=== PATIENT | male | born 1965 | race Caucasian/White ===

== ENCOUNTER 2019-02-14 10:22 | Inpatient (IN) | payer MEDICARE, OTHER ==
[~2019-02-14] VITALS: Ht 185.4 cm; Wt 113.5 kg
[~2019-02-14 10:22] MED LIST: AMOCLA875 PO; ASPI81CH PO; ASPI81EC PO; ATOR10 PO; Augmentin 875-1 EACH PO; Bactrim Ds Tab1 EACH PO; CEPH500; CEPH500 PO; CIPR500 PO; CLOP75 PO; CYCL10 PO; Cephalexin500 MG PO; DIPATR PO; FLUR100 PO; HYDACE5 PO; HYDCHL25; HYDCHL25 PO; HYDR1TAB94; HYDR1TAB94 PO; INS70/30I SUBQ; INSUASPI SC; INSULANPEN SC; LISI5 PO; LOVA20 PO; Lipitor80 MG PO; METF500 PO; NAPR500 PO; NAPR550 PO; Norco 5-325 Ta1 EACH PO; OXYACE5T PO; PARO20 PO; PROM25 PO; Pantoprazole So40 MG PO; RXCYCL10 PO; SIMV80 PO; SUCR1 PO; SULTRIDS PO; TRAVER2240
[2019-02-14 11:48] LABS: BASOPHILS ABSOLUTE AUTO 0.07 K/mm3 (0.00-0.23); BASOPHILS PERCENT AUTO 1 % (0-2); EOSINOPHILS ABSOLUTE AUTO 0.09 K/mm3 (0.00-0.68); EOSINOPHILS PERCENT AUTO 1 % (0-6); Hematocrit 50.3 % (37.0-53.0); Hemoglobin 16.4 g/dL (13.5-17.5); IMMATURE GRAN ABSOLUTE AUTO 0.04 K/mm3 (0.00-0.10); IMMATURE GRAN PERCENT AUTO 1 % (0-1); LYMPHOCYTES ABSOLUTE AUTO 1.27 K/mm3 (0.84-5.20); LYMPHOCYTES PERCENT AUTO 18 % (21-46); MONOCYTES ABSOLUTE AUTO 0.66 K/mm3 (0.16-1.47); MONOCYTES PERCENT AUTO 10 % (4-13); Mean Corpuscular HGB 28.2 pg (26.0-34.0); Mean Corpuscular HGB Conc 32.6 g/dL (31.5-36.5); Mean Corpuscular Volume 87 fL (80-100); Mean Platelet Volume 10.9 fL (9.1-12.4); NEUTROPHILS ABSOLUTE AUTO 4.78 K/mm3 (1.96-9.15); NEUTROPHILS PERCENT AUTO 69 % (41-73); Platelet Count 191 K/mm3 (150-400); RDW Coefficient Variation 13.3 % (11.7-14.2); RDW Standard Deviation 42.1 fL (35.1-46.3); Red Blood Cell Count 5.81 M/mm3 (4.30-5.90); White Blood Cell Count 6.91 K/mm3 (4.00-11.30)
[2019-02-14 12:07] LABS: Albumin, Blood 3.4 g/dL (3.4-5.0); Albumin/Globulin Ratio 0.8 (0.8-1.8); Bilirubin, Total 0.4 mg/dL (0.1-1.0); Bun/Creatinine Ratio 23.5 (12.0-20.0); Calcium, Blood 9.1 mg/dL (8.5-10.1); Creatinine, Blood 1.53 mg/dL (0.60-1.20); Potassium, Blood 4.8 mmol/L (3.5-5.5); Total Protein, Blood 7.4 g/dL (6.4-8.2)
[2019-02-14] MEDS ORDERED: PREG75 PO (13:09)
[2019-02-14] MEDS ORDERED: PRAM.125 PO (13:09)
[2019-02-14] MEDS ORDERED: ATOR20 PO (13:09)
[2019-02-14] MEDS ORDERED: PANT20 PO (13:10)
[2019-02-14] MEDS ORDERED: IBUP600 PO (13:11)
[2019-02-14 14:10] LABS: Source, Urine Voided
[2019-02-14 14:26] LABS: Bilirubin, Urine Neg (Neg); Blood, Urine Neg (Neg); Glucose Qualitative, Urine 4+ (Neg); Ketones, Urine Neg (Neg); Leukocyte Esterase, Urine Neg (Neg); Nitrite, Urine Neg (Neg); Protein, Urine 2+ (Neg); Urobilinogen, Urine NORM (Normal)
[2019-02-14 14:39] LABS: Appearance, Urine Clear (Clear); Color, Urine Yellow (P-Yellow)
[2019-02-14 14:43] LABS: Bacteria Few /hpf; Red Blood Cells, Urine 0-2 /hpf (0-2); Squamous Epithelial Cells Rare /hpf (Few)
--- NOTE | 2019-02-14 16:58 | NUR ---
ER ADMIT- PT ARRIVED TO ROOM 340 VIA GURNEY FROM ED. PT INDEP TO BED. PT IMMEDIATELY REQUESTED TO GO OUTSIDE AND SPOKE. ASKED PT TO WAIT TO COMPLETE VS AND ADMIT, PT REFUSED AND AMBULATED OUTSIDE WITH CANE. CONSULT CALLED TO DR MAO.
--- NOTE | 2019-02-14 18:23 | NUR ---
NEW ADMIT- PT A/OX4, INDEP OUTSIDE WITH CANE. PT MEDICATED X1 WITH RIGHT FOOT PAIN. PHOTO TAKEN OF ULCER TO BOTTOM OF RIGHT FOOT, DR MAO IN TO SEE PT. I&D TOMORROW WITH POSSIBLE AMPUTATION, NPO AT 0100. NO OTHER ACUTE CHANGES SINCE ARRIVAL TO FLOOR.
[2019-02-15 06:01] LABS: Anion Gap 5 mmol/L (6-16); Blood Urea Nitrogen 26 mg/dL (8-24); Bun/Creatinine Ratio 19.8 (12.0-20.0); CO2, Blood 30 mmol/L (21-32); Calcium, Blood 8.2 mg/dL (8.5-10.1); Chloride, Blood 96 mmol/L (98-108); Creatinine, Blood 1.31 mg/dL (0.60-1.20); Glomerular Filtration Rate >60 (60-); Glucose, Blood 107 mg/dL (70-99); Potassium, Blood 3.8 mmol/L (3.5-5.5); Sodium, Blood 131 mmol/L (136-145)
--- NOTE | 2019-02-15 07:55 | NUR ---
PT TO OR.
--- NOTE | 2019-02-15 08:40 | NUR ---
02/15/19 0840 Son Echeverria LIDOCAINE 1% 7.5CC MIXED WITH BUPICAINE .5% 7.5CC. GIVEN INTO FOOT. PATIENT ON SCEDULED ANTIBIOTICS.
--- NOTE | 2019-02-15 09:36 | NUR ---
PT C/O SHARP LT CHEST PAIN INCREASES IN SEVERITY W/DEEP BREATH AND TENDER TO TOUCH, ALSO C/O LT ARM NUMBNESS. ANESTHESIOLOGIST NOTIFIED, EKG DONE.
--- NOTE | 2019-02-15 10:27 | NUR ---
PT BACK FROM I&D. PT AWAKE, REQUESTING FOOD TO EAT. PT REPORTS 4/10 THROBBING PAIN TO RIGHT FOOT. DRESSING C/D/I. RIGHT FOOT ELEVATED ON PILLOWS.
--- NOTE | 2019-02-15 16:49 | NUR ---
PT DAUGHTER PAUL CALLED VERY UPSET DUE TO NOT BEING NOTIFIED THAT PT WAS AT THE HOSPITAL. PT IS A/OX4, INDEP PT THAT WAS REFFERED TO HOSPITAL FROM PODIATRY FOR A I&D. I INFORMED PT DAUGHTER THAT WE DO NOT CALL FAMILY MEMBERS WHEN THEY ARE IN THE HOSPITAL UNLESS THERE IS AN EMERGENCY SITUATION WITH PT AND ESPECIALLY WHEN THE PT IS ALERT AND ORIENTED. SHE WAS UPSET T/O THE PHONE CALL REQUESTING FOR THE DR'S TO CALL HER I TOLD HER I WOULD TAKE HER PHONE NUMBER AND NOTIFY THE DR'S THAT SHE WOULD LIKE A CALL BACK. DAUGHTER APOLOGIZED AT THE END OF THE CALL FOR BEING HOSTILE ON THE PHONE CALL, I TOOK DAUGHERS NUMBER AND NOTIFIED PT THAT SHE WAS UPSET AND ASKED HIM TO CALL HER AND LET HER KNOW WHAT WAS ALL GOING ON. APROX AN HOUR LATER I RECEIVED A PHONE CALL FROM DR MAO STATING THAT THIS PT'S DAUGHTER CALLED HIM ON HIS PERSONAL CELL PHONE IN WHICH HE BELIEVES SHE RECEIVED FROM HIS OFFICE, DR MAO REPORTED THAT HE COULD NOT GIVE HER ANY MEDICAL INFORMATION DUE TO NOT HAVING CONSENT DIRECTLY IN FRONT OF HIM FROM THE PT. HE REPORTS THE DAUGHTER THREATED TO BRADY HIM FOR MALPRACTICE. DOCTOR DAYLIN STATES HE WILL TAKE PT OFF HIS SERVICES IF THIS CONTINUES AND TO NOTIFY SUPER[employer]OR [employer] WELL HOSPITALIST, HE IS ASKING FOR PT TO BE REFERRED TO [facility] OR [facility]. HE DID SAY THAT HE PLANS ON SEEING THE PT ON SUNDAY UNLESS THIS CONTINUES. NOTIFIED TEXTILE KNITTER WHO ALSO NOTIFIED SUPERVISOR [employer]. DR TO NOTIFIED AND REPORTS THERE IS NO MEDICAL NECESSITY TO TRANSFER PT TO ANOTHER FACILITY AT THIS TIME. DR TO WAS NOTIFIED THAT SHE WOULD LIKE A PHONE CALL WHEN AVAILABLE.
--- NOTE | 2019-02-15 18:10 | NUR ---
PT NOTIFIED ABOUT DAUGHTER CALLING DR MAO, PT WAS VERY APOLOGETIC FOR DAUGHTERS BEHAVIOR AND STATES THAT HE WILL TALK TO HER AND THAT HE EXPLAINED TO HER WHY HE WAS HERE.
--- NOTE | 2019-02-15 18:10 | NUR ---
SHIFT SUMMARY- PT A/OX4, INDEP IN ROOM. USES W/C TO GO OUTSIDE AND SMOKE. PT MEDICATED X1 WITH OXYCODONE FOR RIGHT FOOT PAIN. I&D COMPLETED THIS AM BY DR MAO, DRESSING REMAINS C/D/I, DR MAO TO COME SEE PT ON SUNDAY. PT ENCOURAGED TO ELEVATE RLE ON PILLOWS. PT OUTSIDE MULTIPLE TIMES EVEN THOUGH HE IS TO BE ON IVF. NO OTHER ACUTE CHANGES THIS SHIFT.
--- NOTE | 2019-02-15 18:48 | NUR ---
PT WENT FOR AN I&D THIS MORNING. PT REMAINED GROGGY FOR SEVERAL HOURS UPON RETURN TO THE MEDICAL FLOOR. PT SLEPT ON AND OFF FOR MOST OF THE DAY. HE ATE ALL OF HIS MEALS AND TWO SNACKS IN BETWEEN. PT CAN BE ANXIOUS AND IRRITABLE UPON BEING AWOKEN. PT ACCEPTED PRN PAIN MEDICATION ONCE AFTER RETURN FROM SURGERY. PT IS INDEPENDANT AND ORIENTATED.
--- NOTE | 2019-02-15 22:38 | NUR ---
1950; ROUNDED ON PATIENT; PATIENT ASKED TO BELEFT ALONE; ADVISED HIM THAT WE WOULD LEAVE HIM BE UNTIL BETWEEN 9-10 PM; 2199: PATIENT APPARENTLY DEMANDING TO GO OUT SIDE AND THREATENTING TO CUT HIS LINE IF NOT DISCONNECTED FROM HIS IVF. WENT TO SEE THE PATIENT ASKED HIM TO BE COURTEOUS TO THE STAFF. TOLD HIM THAT WE WANT HIM TO BE COMFORTABLE BUT THAT HE NEEDS TO MINDFUL OF HIS MANNER WITH STAF; PATIENT BECAME ENLAMEDD. DISCONNECTED HIS IV AND HE WENT OUTSIDE TO SMOKE.. ADVISEDD CONTROL SYSTEM COMPUTER SCIENTIST NOT TO ENTER THE PATIENTS ROOM WITH OUT ME AND ADVISED CHARGE OF PT BEHAVIOR.
[2019-02-16 05:30] LABS: BASOPHILS ABSOLUTE AUTO 0.07 K/mm3 (0.00-0.23); BASOPHILS PERCENT AUTO 1 % (0-2); EOSINOPHILS ABSOLUTE AUTO 0.14 K/mm3 (0.00-0.68); EOSINOPHILS PERCENT AUTO 2 % (0-6); Hematocrit 47.9 % (37.0-53.0); Hemoglobin 15.7 g/dL (13.5-17.5); IMMATURE GRAN ABSOLUTE AUTO 0.04 K/mm3 (0.00-0.10); IMMATURE GRAN PERCENT AUTO 1 % (0-1); LYMPHOCYTES ABSOLUTE AUTO 2.12 K/mm3 (0.84-5.20); LYMPHOCYTES PERCENT AUTO 28 % (21-46); MONOCYTES ABSOLUTE AUTO 0.73 K/mm3 (0.16-1.47); MONOCYTES PERCENT AUTO 10 % (4-13); Mean Corpuscular HGB 28.4 pg (26.0-34.0); Mean Corpuscular HGB Conc 32.8 g/dL (31.5-36.5); Mean Corpuscular Volume 87 fL (80-100); Mean Platelet Volume 10.5 fL (9.1-12.4); NEUTROPHILS ABSOLUTE AUTO 4.59 K/mm3 (1.96-9.15); NEUTROPHILS PERCENT AUTO 60 % (41-73); Platelet Count 163 K/mm3 (150-400); RDW Coefficient Variation 12.9 % (11.7-14.2); RDW Standard Deviation 40.4 fL (35.1-46.3); Red Blood Cell Count 5.52 M/mm3 (4.30-5.90); White Blood Cell Count 7.69 K/mm3 (4.00-11.30)
[2019-02-16 05:57] LABS: Anion Gap 6 mmol/L (6-16); Blood Urea Nitrogen 27 mg/dL (8-24); Bun/Creatinine Ratio 24.3 (12.0-20.0); CO2, Blood 25 mmol/L (21-32); Calcium, Blood 8.9 mg/dL (8.5-10.1); Chloride, Blood 109 mmol/L (98-108); Creatinine, Blood 1.11 mg/dL (0.60-1.20); Glomerular Filtration Rate >60 (60-); Glucose, Blood 190 mg/dL (70-99); Potassium, Blood 4.6 mmol/L (3.5-5.5); Sodium, Blood 140 mmol/L (136-145)
--- NOTE | 2019-02-16 19:21 | NUR ---
SHIFT SUMMARY: NO ACUTE CHANGES TO REPORT THIS SHIFT. PT A&O; CALM AND COOPERATIVE WITH CARE. NO C/O PAIN THIS SHIFT. PATIENT OUTSIDE VIA WHEELCHAIR TO SMOKE. DIABETIC ULCER R FOOT; I&D 02/15; DRESSING C/D/I; HOSPITALIST (DR TO) ASKED NURSING TO CALL DR MAO' ON SATURDAY 02/17 AND REQUEST HE (DR MAO) SEE PATIENT IN HOSPITAL R/T R FOOT WOUND. IV ABX CONTINUING. REPORT GIVEN TO ONCOMING RN.
[2019-02-17 05:38] LABS: BASOPHILS ABSOLUTE AUTO 0.07 K/mm3 (0.00-0.23); BASOPHILS PERCENT AUTO 1 % (0-2); EOSINOPHILS ABSOLUTE AUTO 0.14 K/mm3 (0.00-0.68); EOSINOPHILS PERCENT AUTO 2 % (0-6); Hemoglobin 15.7 g/dL (13.5-17.5); IMMATURE GRAN ABSOLUTE AUTO 0.04 K/mm3 (0.00-0.10); IMMATURE GRAN PERCENT AUTO 1 % (0-1); LYMPHOCYTES ABSOLUTE AUTO 1.64 K/mm3 (0.84-5.20); LYMPHOCYTES PERCENT AUTO 27 % (21-46); MONOCYTES ABSOLUTE AUTO 0.54 K/mm3 (0.16-1.47); MONOCYTES PERCENT AUTO 9 % (4-13); Mean Corpuscular HGB 28.4 pg (26.0-34.0); Mean Corpuscular HGB Conc 32.7 g/dL (31.5-36.5); Mean Corpuscular Volume 87 fL (80-100); Mean Platelet Volume 10.2 fL (9.1-12.4); NEUTROPHILS ABSOLUTE AUTO 3.61 K/mm3 (1.96-9.15); NEUTROPHILS PERCENT AUTO 60 % (41-73); Platelet Count 181 K/mm3 (150-400); RDW Coefficient Variation 12.9 % (11.7-14.2); RDW Standard Deviation 40.5 fL (35.1-46.3); Red Blood Cell Count 5.53 M/mm3 (4.30-5.90); White Blood Cell Count 6.04 K/mm3 (4.00-11.30)
[2019-02-17 06:11] LABS: Anion Gap 6 mmol/L (6-16); Blood Urea Nitrogen 30 mg/dL (8-24); Bun/Creatinine Ratio 28.8 (12.0-20.0); CO2, Blood 25 mmol/L (21-32); Calcium, Blood 9.1 mg/dL (8.5-10.1); Chloride, Blood 109 mmol/L (98-108); Creatinine, Blood 1.04 mg/dL (0.60-1.20); Glomerular Filtration Rate >60 (60-); Glucose, Blood 189 mg/dL (70-99); Potassium, Blood 4.4 mmol/L (3.5-5.5); Sodium, Blood 140 mmol/L (136-145)
--- NOTE | 2019-02-17 19:25 | NUR ---
SHIFT SUMMARY PATIENT A&O X4. INDEP IN ROOM, FOR DISTANCES. MEDICATED X1 FOR PAIN THIS SHIFT. DENIES SOB OR NAUSEA. DR. MAO IN TO SEE PATIENT, DRESSING CHANGE DONE PER HIS ORDERS BY SOIL BIOLOGY TEACHER ALEX. NO ACUTE CHANGES.
--- NOTE | 2019-02-18 04:31 | NUR ---
GAME FARM HELPER SUMMARY NO ACUTE CHANGES THIS SHIFT. PT AAOX4 AND INDEPENDENT IN ROOM. USES WHEELCHAIR TO GO OUTSIDE. DRESSING ON R FOOT C/D/I, CHANGED BY DR SALINAS 02/17/19. TREATED FOR PAIN OF R FOOT X2 PER EMAR. VSS, WILL CONTINUE TO MONITOR.
[2019-02-18 05:30] LABS: BASOPHILS PERCENT AUTO 2 % (0-2); EOSINOPHILS ABSOLUTE AUTO 0.21 K/mm3 (0.00-0.68); EOSINOPHILS PERCENT AUTO 3 % (0-6); Hematocrit 49.9 % (37.0-53.0); Hemoglobin 16.4 g/dL (13.5-17.5); IMMATURE GRAN ABSOLUTE AUTO 0.03 K/mm3 (0.00-0.10); IMMATURE GRAN PERCENT AUTO 1 % (0-1); LYMPHOCYTES ABSOLUTE AUTO 2.56 K/mm3 (0.84-5.20); LYMPHOCYTES PERCENT AUTO 40 % (21-46); MONOCYTES ABSOLUTE AUTO 0.53 K/mm3 (0.16-1.47); MONOCYTES PERCENT AUTO 8 % (4-13); Mean Corpuscular HGB 28.4 pg (26.0-34.0); Mean Corpuscular HGB Conc 32.9 g/dL (31.5-36.5); Mean Corpuscular Volume 86 fL (80-100); Mean Platelet Volume 10.1 fL (9.1-12.4); NEUTROPHILS ABSOLUTE AUTO 2.92 K/mm3 (1.96-9.15); NEUTROPHILS PERCENT AUTO 46 % (41-73); Platelet Count 196 K/mm3 (150-400); RDW Coefficient Variation 12.8 % (11.7-14.2); RDW Standard Deviation 39.7 fL (35.1-46.3); Red Blood Cell Count 5.78 M/mm3 (4.30-5.90); White Blood Cell Count 6.35 K/mm3 (4.00-11.30)
[2019-02-18 05:51] LABS: Anion Gap 5 mmol/L (6-16); Blood Urea Nitrogen 31 mg/dL (8-24); Bun/Creatinine Ratio 29.2 (12.0-20.0); CO2, Blood 26 mmol/L (21-32); Calcium, Blood 9.4 mg/dL (8.5-10.1); Chloride, Blood 108 mmol/L (98-108); Creatinine, Blood 1.06 mg/dL (0.60-1.20); Glomerular Filtration Rate >60 (60-); Glucose, Blood 167 mg/dL (70-99); Potassium, Blood 4.1 mmol/L (3.5-5.5); Sodium, Blood 139 mmol/L (136-145)
--- NOTE | 2019-02-18 18:09 | NUR ---
SUMMARY PT SITTING UP AT THE EDGE OF THE BED EATING HIS DINNER, PT HAS BEEN PLEASANT AND COOPERATIVE WITH CARE, MED PER EMAR FOR PAIN NEEDED, PT ABLE TO GET UP IN THE ROOM INDEPENDENTLY AND ABLE TO GO OUT AND ABOUT IN A WHEELCHAIR, DR MAO HAS BEEN IN TO SEE THE PT, PLAN TO PLACE A WOUND VAC TOMORROW AND HOPEFULLY DC HOME, WILL CONT TO MONITOR
--- NOTE | 2019-02-19 06:48 | NUR ---
Rn summary: Patient has slept most of shift. Pt was a little disgruntled to be awakened for evening meds. Pt has been out to smoke in WC x2 this shift. Drsg to Rt foot is C/D/I with lara wrap on. Pt medicated x1 for pain at 0414 with good relief. Possible DC with home wound vac. Up independant in room.
[2019-02-19] MEDS ORDERED: ACET325 PO (14:40)
[2019-02-19] MEDS ORDERED: BISA5EC PO (14:42)
[2019-02-19] MEDS ORDERED: Nicoderm Cq1 EAC1 TOP (14:43)
[2019-02-19] MEDS ORDERED: Augmentin 875-1 EACH PO (14:43)
[2019-02-19] MEDS ORDERED: ONDA4ODT MM (14:44)
[2019-02-19] MEDS ORDERED: MIRALAX17 GM PO (14:45)
[2019-02-19] MEDS ORDERED: Senna-Extra17.2 MG PO (14:50)
[2019-02-19] MEDS ORDERED: Percocet 5-3251 EACH PO (14:50)
[2019-02-19] MEDS ORDERED: Florastor250 MG PO (14:51)
--- NOTE | 2019-02-19 15:22 | NUR ---
DISCHARGE DISCHARGE MEDICATIONS AND INSTRUCTIONS EXPLAINED TO PATIENT. PATIENT STATED UNDERSTANDING. CHARGE NURSE PLACED HOME WOUND VAC. HOME HEALTH TO MANAGE WOUND VAC OUTPATIENT. IV REMOVED WITHOUT DIFFICULTY. BELONGINGS WITH PATIENT. PATIENT TRANSFERED TO PRIVATE VEHICLE VIA WHEELCHAIR.
== END 2019-02-19 15:19 | disposition home health service (06) | DRG 623 ==
LOC: ER 10:22 → MEDS 13:58
PROVIDERS: Emergency Medicine; Family Medicine; Podiatrist; ADMIT Internal Medicine
PROC: 0QBN3ZX Excision of Right Metatarsal, Percutaneous Approach, Diagnostic (ICD-10-PCS; 2019-02-15)
PROC: 0QBQ3ZX Excision of Right Toe Phalanx, Percutaneous Approach, Diagnostic (ICD-10-PCS; 2019-02-15)
PROC: 0JBQ0ZZ Excision of Right Foot Subcutaneous Tissue and Fascia, Open Approach (ICD-10-PCS; principal; 2019-02-15 08:00)
DX: E11.621 Type 2 diabetes mellitus with foot ulcer (principal); L03.115 Cellulitis of right lower limb; M86.8X7 Other osteomyelitis, ankle and foot; L02.611 Cutaneous abscess of right foot; E11.69 Type 2 diabetes mellitus with other specified complication; L97.512 Non-pressure chronic ulcer of other part of right foot with fat layer exposed; N17.9 Acute kidney failure, unspecified; I25.2 Old myocardial infarction; G47.00 Insomnia, unspecified; G25.81 Restless legs syndrome; K21.9 Gastro-esophageal reflux disease without esophagitis; I10 Essential (primary) hypertension; E78.5 Hyperlipidemia, unspecified; F17.210 Nicotine dependence, cigarettes, uncomplicated; F32.9 Major depressive disorder, single episode, unspecified; F41.9 Anxiety disorder, unspecified; E11.65 Type 2 diabetes mellitus with hyperglycemia; E11.42 Type 2 diabetes mellitus with diabetic polyneuropathy; B18.2 Chronic viral hepatitis C; M54.9 Dorsalgia, unspecified; G89.29 Other chronic pain; Z79.02 Long term (current) use of antithrombotics/antiplatelets; Z79.4 Long term (current) use of insulin; Z79.891 Long term (current) use of opiate analgesic; Z79.899 Other long term (current) drug therapy; Z88.8 Allergy status to other drugs, medicaments and biological substances; Z89.412 Acquired absence of left great toe; Z89.411 Acquired absence of right great toe; Z89.422 Acquired absence of other left toe(s)
CPT/HCPCS: 36415; 71046; 73630; 80048; 80053; 81001; 82947; 83036; 83605; 85025; 85651; 86140; 87040; 87071; 87075; 87205; 88305; 88311; 93005; 93010; 96361; 96374; 96375; 99284-25; C9113; J0696; J1170; J1644; J1650; J2250; J2405; J2543; J2704; J3010; J7030

== ENCOUNTER 2019-09-08 18:51 | Emergency (ER) | payer MEDICARE, OTHER ==
[~2019-09-08] VITALS: Ht 182.9 cm; Wt 108.9 kg
[~2019-09-08 18:51] MED LIST changes: +ACET325 PO; +ATOR20 PO; +BISA5EC PO; +Florastor250 MG PO; +IBUP600 PO; +MIRALAX17 GM PO; +Nicoderm Cq1 EAC1 TOP; +ONDA4ODT MM; +PANT20 PO; +PRAM.125 PO; +PREG75 PO; +Percocet 5-3251 EACH PO; +Senna-Extra17.2 MG PO
[2019-09-08 19:47] LABS: BASOPHILS ABSOLUTE AUTO 0.07 K/mm3 (0.00-0.23); BASOPHILS PERCENT AUTO 1 % (0-2); EOSINOPHILS ABSOLUTE AUTO 0.09 K/mm3 (0.00-0.68); EOSINOPHILS PERCENT AUTO 1 % (0-6); Hematocrit 49.2 % (37.0-53.0); Hemoglobin 16.4 g/dL (13.5-17.5); IMMATURE GRAN ABSOLUTE AUTO 0.11 K/mm3 (0.00-0.10); IMMATURE GRAN PERCENT AUTO 1 % (0-1); LYMPHOCYTES PERCENT AUTO 18 % (21-46); MONOCYTES ABSOLUTE AUTO 0.72 K/mm3 (0.16-1.47); MONOCYTES PERCENT AUTO 8 % (4-13); Mean Corpuscular HGB Conc 33.3 g/dL (31.5-36.5); Mean Corpuscular Volume 87 fL (80-100); NEUTROPHILS ABSOLUTE AUTO 6.91 K/mm3 (1.96-9.15); NEUTROPHILS PERCENT AUTO 72 % (41-73); Platelet Count 314 K/mm3 (150-400); RDW Coefficient Variation 11.8 % (11.7-14.2); RDW Standard Deviation 37.8 fL (35.1-46.3); Red Blood Cell Count 5.66 M/mm3 (4.30-5.90)
[2019-09-08 20:04] LABS: Alanine Aminotransfer (ALT/SGP 24 U/L (12-78); Albumin, Blood 2.7 g/dL (3.4-5.0); Albumin/Globulin Ratio 0.5 (0.8-1.8); Alk Phos 171 U/L (50-136); Anion Gap 7 mmol/L (6-16); Aspartate Aminotrans (AST/SGOT 14 U/L (12-37); Bilirubin, Total 0.3 mg/dL (0.1-1.0); Blood Urea Nitrogen 29 mg/dL (8-24); Bun/Creatinine Ratio 26.9 (12.0-20.0); CO2, Blood 26 mmol/L (21-32); Calcium, Blood 9.4 mg/dL (8.5-10.1); Chloride, Blood 97 mmol/L (98-108); Creatinine, Blood 1.08 mg/dL (0.60-1.20); Globulin, Blood 5.8 g/dL (2.2-4.0); Glomerular Filtration Rate >60 (60-); Glucose, Blood 582 mg/dL (70-99); Potassium, Blood 4.7 mmol/L (3.5-5.5); Sodium, Blood 130 mmol/L (136-145); Total Protein, Blood 8.5 g/dL (6.4-8.2)
[2019-09-08] MEDS ORDERED: KEFLEX500 MG PO (20:34)
== END 2019-09-08 20:57 | disposition home or self-care (01) ==
LOC: ER 18:51
PROVIDERS: Physician Assistant
DX: E11.621 Type 2 diabetes mellitus with foot ulcer (principal); L97.519 Non-pressure chronic ulcer of other part of right foot with unspecified severity; Z91.19 Patient's noncompliance with other medical treatment and regimen; Z88.8 Allergy status to other drugs, medicaments and biological substances; Z79.899 Other long term (current) drug therapy; Z79.4 Long term (current) use of insulin; E11.9 Type 2 diabetes mellitus without complications; I10 Essential (primary) hypertension; E78.5 Hyperlipidemia, unspecified; E11.40 Type 2 diabetes mellitus with diabetic neuropathy, unspecified; F32.9 Major depressive disorder, single episode, unspecified; F41.9 Anxiety disorder, unspecified; F17.200 Nicotine dependence, unspecified, uncomplicated
CPT/HCPCS: 36415; 73630; 80053; 85025; 99283-25; A9270-GY

== ENCOUNTER 2019-09-14 12:17 | Inpatient (IN) | payer MEDICARE, OTHER ==
[~2019-09-14] VITALS: Ht 185.4 cm; Wt 115.0 kg
[~2019-09-14 12:17] MED LIST changes: +KEFLEX500 MG PO
[2019-09-14 13:04] LABS: BASOPHILS ABSOLUTE AUTO 0.09 K/mm3 (0.00-0.23); BASOPHILS PERCENT AUTO 1 % (0-2); EOSINOPHILS ABSOLUTE AUTO 0.13 K/mm3 (0.00-0.68); EOSINOPHILS PERCENT AUTO 1 % (0-6); Hematocrit 50.2 % (37.0-53.0); IMMATURE GRAN ABSOLUTE AUTO 0.15 K/mm3 (0.00-0.10); IMMATURE GRAN PERCENT AUTO 1 % (0-1); LYMPHOCYTES ABSOLUTE AUTO 1.76 K/mm3 (0.84-5.20); LYMPHOCYTES PERCENT AUTO 14 % (21-46); MONOCYTES ABSOLUTE AUTO 0.98 K/mm3 (0.16-1.47); MONOCYTES PERCENT AUTO 8 % (4-13); Mean Corpuscular HGB 28.8 pg (26.0-34.0); Mean Corpuscular HGB Conc 33.9 g/dL (31.5-36.5); Mean Corpuscular Volume 85 fL (80-100); NEUTROPHILS ABSOLUTE AUTO 9.08 K/mm3 (1.96-9.15); NEUTROPHILS PERCENT AUTO 75 % (41-73); Platelet Count 338 K/mm3 (150-400); RDW Coefficient Variation 11.8 % (11.7-14.2); RDW Standard Deviation 35.9 fL (35.1-46.3); Red Blood Cell Count 5.91 M/mm3 (4.30-5.90); White Blood Cell Count 12.19 K/mm3 (4.00-11.30)
[2019-09-14 13:23] LABS: Alanine Aminotransfer (ALT/SGP 21 U/L (12-78); Albumin, Blood 2.6 g/dL (3.4-5.0); Albumin/Globulin Ratio 0.4 (0.8-1.8); Alk Phos 145 U/L (50-136); Anion Gap 8 mmol/L (6-16); Aspartate Aminotrans (AST/SGOT 31 U/L (12-37); Bilirubin, Total 0.6 mg/dL (0.1-1.0); Blood Urea Nitrogen 19 mg/dL (8-24); Bun/Creatinine Ratio 20.7 (12.0-20.0); CO2, Blood 23 mmol/L (21-32); Calcium, Blood 9.6 mg/dL (8.5-10.1); Chloride, Blood 99 mmol/L (98-108); Creatinine, Blood 0.92 mg/dL (0.60-1.20); Globulin, Blood 6.3 g/dL (2.2-4.0); Glomerular Filtration Rate >60 (60-); Glucose, Blood 469 mg/dL (70-99); Potassium, Blood 5.2 mmol/L (3.5-5.5); Sodium, Blood 130 mmol/L (136-145); Total Protein, Blood 8.9 g/dL (6.4-8.2)
[2019-09-14] MEDS ORDERED: CEPH250A PO ×2 (13:55→18:32)
--- NOTE | 2019-09-14 19:18 | NUR ---
ADMISSION: REPORT RECEIVED BY FORENSIC AUDIT EXPERT. PT TO UNIT AT ABOUT 1800. UPON ASSESSMENT PT IS ANXIOUS ABOUT GETTING AN MRI, RADIOLOGY STATES THAT PT BECAME VERY ANXIOUS AND REFUSED SCAN. PT ABLE TO WALK TO [facility] WITH SBA. R LEG ELEVATED. HR AND BP HIGH, PT STATES PAINFUL AND ANXIOUS. WILL MEDICATE AND CTM. CONSENT OBTAINED AND PICTURES TAKEN OF R FOOT ULCERS. DINNER TRAY DELIVERED. WILL REVIEW ORDERS AND CTM PT STATUS
--- NOTE | 2019-09-15 06:08 | NUR ---
SHIFT SUMMARY SITTING UP ON THE SIDE OF HIS BED WITH FEET DANGLING ON THE SIDEOF THE BED AFTER HAVING JUST RETURNED FROM GOING OUTSIDE TO SMOKE. HAD REQUESTED PAIN MEDS FOR RIGHT FOOT PAIN OF 8/10, MEDICATED PER EMAR. REQUESTED ANOTHER CUP OF COFFEE AFTER NURSING REITERATED NEED TO STAY IN ROOM FOR MINIMUM OF 15 MINUTES PAST PAIN MED ADMINISTRATION, VERBALIZED UNDERSTANDING. HAS HAD INTERMITTENT PAIN THAT WAS MEDICATED THROUGHOUT SHIFT, BUT HAS BEEN ABLE TO REST. NO BLEEDING THROUGH NOTED ON BANDAGE APPLIED TO FOOT AT START OF SHIFT AFTER CLEANSING EFFECTED AREA. TREATED FOR ELEVATED BGL AFTER EATING A LARGE BEDTIME SNACK OF PIZZA, JELLO, AND PUDDING, FOLLOWED BY A CBG OF 400 NOTED, TOLERATED WELL. DENIES FURTHER NEEDS OR WANTS AT THIS TIME. SAFETY MEASURES IN PLACE. WILL GIVE HAND OFF TO ONCOMING SHIFT USING SBAR.
--- NOTE | 2019-09-15 08:52 | NUR ---
DR. IBARRA IN TO SEE PT AT THIS TIME. NEW ORDERS OBTAINED, SEE EMAR.
--- NOTE | 2019-09-15 10:32 | NUR ---
PT OUT OF ROOM PT OUR OF ROOM VIA WHEELCHAIR. REPORTS "I'LL BE RIGHT BACK, GOING TO SMOKE."
--- NOTE | 2019-09-15 11:05 | NUR ---
PT TO MRI VIA WHEELCHAIR AT THIS TIME.
--- NOTE | 2019-09-15 11:50 | NUR ---
PT RETURNED FROM MRI TO ROOM AT THIS TIME
--- NOTE | 2019-09-15 12:15 | NUR ---
NOTIFIED DR. IBARRA NOTIFIED CBG 423. CONTINUE WITH SLIDING SCALE/ GIVE 12UNITS HUMALOG AND ORDER CONSISTANT CARB DIET, PER MD. PT CURRENTLY OUTSIDE SMOKING DESPITE ENCOURAGEMENT TO WAIT FOR MEDICATION. WILL ADMINSTER MEDICATION UPON RETURN AND CONT. TO MONITOR.
--- NOTE | 2019-09-15 14:01 | NUR ---
PT OUTSIDE SMOKING VIA WHEELCHAIR
--- NOTE | 2019-09-15 18:44 | NUR ---
SHIFT SUMMARY PT A&O WITH VSS ON RA T/O SHIFT. RLE HAS NELDA WRAP/GAUZE IN PLACE, DRESSING C/D/I WITH NO DRAINAGE NOTED. PAIN MANAGED PER EMAR ORDERS. MRI COMPLETED THIS MORNING. PT IND IN ROOM. FREQUENTLY GOES OUTSIDE TO SMOKE VIA IND WHEELCHAIR USE. TOLERATING DIET, WHICH IS NOW ADA/CARDIAC/CONSISTANT CARBS. REPORTS VOIDING WITHOUT DIFFUCULTY. PT IS CURRENTLY OUTSIDE AT THIS TIME. WILL MONITOR FOR RETURN AND GIVE REPORT TO ONCOMING RN.
--- NOTE | 2019-09-16 05:39 | NUR ---
SUMMARY NO ACUTE CHANGES NOTED THROUGH THE NIGHT. DRSG TO RIGHT FOOT WAS CHANGED, WOUND CLEANSED. PT IS INDEPENDENT IN ROOM AND GOES OUTSIDE TO SMOKE FREQUENTLY. SMOKING CESSATION WAS ENCOURAGED. PT EDUCATED ON WOUND MNGMT. ENCOURAGED TO ELEVATE RLE WHENEVER POSSIBLE. PT STATES UNDERSTANDING. PAIN MANAGED PER EMAR. TOLERATING PO INTAKE. CALL LIGHT IN REACH.
--- NOTE | 2019-09-16 17:20 | NUR ---
SHIFT SUMMARY] PT UPSET THIS MORNING AFTER SPEAKING WITH DR. CASH ABOUT AMPUTATION OF HIS TOES ON HIS R FOOT. IS IMPROVED IN DEMEANER FROM THIS A.M. HAS BEEN OUT TO SMOKE SEVERAL TIMES TODAY. INDEPENDENT IN ROOM BUT WHEELS HIMSELF OUT IN W/C. DRESSING REPLACED THIS MORNING ON R FOOT AFTER BEING SEEN BY MD. REPORTS PAIN MEDS MORE EFFECTIVE NOW WITH ORAL PAIN MEDS ON BOARD WITH RATINGS. PLANS FOR SURGERY TOMORROW,
--- NOTE | 2019-09-17 04:45 | NUR ---
SHIFT SUMMARY NO ACUTE CHANGES NOTED THROUGH THE NIGHT. DRSG REMAINS C/D/I. PAIN MANAGED PER EMAR PRN. PT NPO SINCE MIDNIGHT. PT IS REFUSING AN 18G IV FOR SURGERY TODAY UNTIL LATER THIS AM. HE DOES HAVE A 20G IN PLACE THAT IS WORKING PROPERLY. ABX INFUSED PER EMAR. CALL LIGHT IN REACH, [facility]
[2019-09-17 05:26] LABS: BASOPHILS ABSOLUTE AUTO 0.09 K/mm3 (0.00-0.23); BASOPHILS PERCENT AUTO 1 % (0-2); EOSINOPHILS ABSOLUTE AUTO 0.15 K/mm3 (0.00-0.68); EOSINOPHILS PERCENT AUTO 2 % (0-6); Hematocrit 47.2 % (37.0-53.0); Hemoglobin 15.7 g/dL (13.5-17.5); IMMATURE GRAN ABSOLUTE AUTO 0.11 K/mm3 (0.00-0.10); IMMATURE GRAN PERCENT AUTO 1 % (0-1); LYMPHOCYTES ABSOLUTE AUTO 1.89 K/mm3 (0.84-5.20); LYMPHOCYTES PERCENT AUTO 25 % (21-46); MONOCYTES ABSOLUTE AUTO 0.69 K/mm3 (0.16-1.47); MONOCYTES PERCENT AUTO 9 % (4-13); Mean Corpuscular HGB 28.8 pg (26.0-34.0); Mean Corpuscular HGB Conc 33.3 g/dL (31.5-36.5); Mean Corpuscular Volume 86 fL (80-100); Mean Platelet Volume 9.7 fL (9.1-12.4); NEUTROPHILS PERCENT AUTO 62 % (41-73); Platelet Count 294 K/mm3 (150-400); RDW Coefficient Variation 11.7 % (11.7-14.2); RDW Standard Deviation 36.9 fL (35.1-46.3); Red Blood Cell Count 5.46 M/mm3 (4.30-5.90); White Blood Cell Count 7.63 K/mm3 (4.00-11.30)
[2019-09-17 05:39] LABS: Anion Gap 7 mmol/L (6-16); Blood Urea Nitrogen 30 mg/dL (8-24); Bun/Creatinine Ratio 30.7 (12.0-20.0); CO2, Blood 25 mmol/L (21-32); Calcium, Blood 9.5 mg/dL (8.5-10.1); Chloride, Blood 100 mmol/L (98-108); Creatinine, Blood 0.98 mg/dL (0.60-1.20); Glomerular Filtration Rate >60 (60-); Glucose, Blood 355 mg/dL (70-99); Potassium, Blood 4.4 mmol/L (3.5-5.5); Sodium, Blood 132 mmol/L (136-145)
--- NOTE | 2019-09-17 08:35 | NUR ---
PT NPO SCHED MEDS GIVEN EARLIER PT WENT OUTSIDE ENCOURAGED PT NOT TO SMOKE IV FENT GIVEN PAIN DOWN TO 5/10 DRESSING CDI PT STATED DRESSING WAS CHAGED YESTERDAY BY DR BISHOP CAST THIS AFTERNOON
--- NOTE | 2019-09-17 09:10 | NUR ---
DR IBARRA BY TO SEE PT
--- NOTE | 2019-09-17 12:03 | NUR ---
pt asking when he will go to or tx for bs
--- NOTE | 2019-09-17 14:38 | NUR ---
pt transported to day surg via [facility]
--- NOTE | 2019-09-17 14:45 | NUR ---
INTO SDS VIA [employer]. PT A&O X 3. REPORTS 5/10 RIGHT FOOT PAIN THAT IS "MORE TOLERABLE THAN EARLIER." HISTORY AND ALLERGIES REVIEWED. NPO STATUS CONFIRMED. LUNGS WITH SCATTERED RHONCHI THAT CLEAR WITH COUGH-SATS>90% ON RA AND NO NOTED SOB. DRESSING INTACT TO RIGHT LOWER EXTREMITY-NO PREP WIPE WITH CHLOHEXIDINE.
--- NOTE | 2019-09-17 16:50 | NUR ---
PT ARRIVED BACK TO ROOM 208 FROM PACU PT IS S/P AMP R META TARSAL DRESSING C/D/I ELEV ON PILLOWS PT WANTING TO EAT
--- NOTE | 2019-09-17 18:22 | NUR ---
PT WANTING TO GO OUTSIDE IV SL
--- NOTE | 2019-09-17 18:52 | NUR ---
pt back to room
--- NOTE | 2019-09-17 21:28 | NUR ---
PT LEFT ROOM IN WHEELCHAIR STATING, "I'M GOING OUTSIDE TO GET SOME FRESH AIR."
--- NOTE | 2019-09-17 21:45 | NUR ---
RETURNED TO ROOM IN WHEELCHAIR STATING, "I'LL SEE YOU AT MIDNIGHT, I'M GOING TO SLEEP."
--- NOTE | 2019-09-17 22:50 | NUR ---
PT REQUESTED PAIN MEDS FROM David MENG CNA WHEN SHE ENTERED THE ROOM AFTER HE HAD USED HIS CALL LIGHT. HE STATED LOUDLY THAT HE WAS IN A LOT OF PAIN. HE DEMANDED THAT "SOMEONE" BRING HIM SOME PAIN MEDS "NOW". HE SAID THAT HE NEEDED SOMEONE TO CALL THE DR AND GET HIM SOMETHING STRONG NOW. David MENG CNA STATED THAT SHE WOULD LET HIS NURSE KNOW. THIS NURSE WAS AT THE COMPUTER JUST OUTSIDE THE PT'S ROOM AND WAS ABLE TO HEAR THE EXCHANGE. UPON ENTRY TO THE ROOM HE DEMANDED THAT NURSING BRING HIM SOMETHING FOR PAIN. NURSING STATED THAT HE HAD A PERCOCET AVAILABLE. HE THEN DEMANDED, "JUST BRING ME SOMETHING STRONG, NOW!" NURSING REITERATED THAT HE HAD IV PAIN MEDS AN HOUR AND A HALF AGO, AND THAT IT WAS NOT YET TIME FOR MORE, BUT WOULD BRING THE PERCOCET THAT WAS AVAILABLE. RETURNING TO THE ROOM WITH THE PERCOCET, NURSING SCANNED THE MED AND HANDED IT TO THE PT IN A PILL CUP. THE PT THEN ASKED, "WHAT AM I SUPPOSED TO DO WITH THIS?" NURSING STATED THAT HE NEEDED TO TAKE THE PAIN MED. HE THEN ACCIDENTALLY DROPPED THE PILL ON THE FLOOR. NURSING PICKED UP THE PILL AND RETURNED TO THE MED ROOM. AFTER WASTING THE DROPPED PILL, RETURNED TO THE ROOM WITH A NEW PERCOCET PILL. PT SWALLWED THE PILL AND THEN INFORMED NURSING THAT HE DIDN'T WANT ANYONE ELSE TO DISTURB HIM FOR THE REST OF THE NIGHT. HE STATED THAT HE DIDN'T WANT TO SEE ANYONE OTHER THAN HIS DOCTOR TOMORROW. NURSING REMINDED HIM THAT HE HAD A MIDNIGHT IV ANTIBIOTIC DUE. HE STATED, "I DON'T WANT IT. I DON'T WANT ANYONE BACK IN HERE." NURSING INFORMED CHARGE NURSE AND ROCK BREAKER.
--- NOTE | 2019-09-18 06:24 | NUR ---
LYING IN SEMI FOWLES WITH EYES CLOSED. PT WOKE UP AROUNF 4;30AM AND REQUESTED COFFEE. APPEARS IN MUCHE BETTER SPIRITS AND IS COOPERATIVE WITH CARE. STATES THAT HE SEES NO NEED TO CONTINUE BEING ANGRY. GIVEN PRN PERCOCET, 0600 MED, AND COFFEE. DENEIS FURTHER NEEDS OR WANTS AT THIS TIME. SAFETY MEASURES IN PLACE. WILL GIVE HAND OFF TO ONCOMING SHIFT USING SBAR.
[2019-09-18 08:15] LABS: BASOPHILS ABSOLUTE AUTO 0.08 K/mm3 (0.00-0.23); BASOPHILS PERCENT AUTO 1 % (0-2); EOSINOPHILS ABSOLUTE AUTO 0.11 K/mm3 (0.00-0.68); EOSINOPHILS PERCENT AUTO 1 % (0-6); Hematocrit 45.4 % (37.0-53.0); Hemoglobin 14.9 g/dL (13.5-17.5); IMMATURE GRAN PERCENT AUTO 1 % (0-1); LYMPHOCYTES ABSOLUTE AUTO 2.02 K/mm3 (0.84-5.20); LYMPHOCYTES PERCENT AUTO 23 % (21-46); MONOCYTES ABSOLUTE AUTO 0.97 K/mm3 (0.16-1.47); MONOCYTES PERCENT AUTO 11 % (4-13); Mean Corpuscular HGB 28.7 pg (26.0-34.0); Mean Corpuscular HGB Conc 32.8 g/dL (31.5-36.5); Mean Corpuscular Volume 88 fL (80-100); Mean Platelet Volume 9.7 fL (9.1-12.4); NEUTROPHILS ABSOLUTE AUTO 5.63 K/mm3 (1.96-9.15); NEUTROPHILS PERCENT AUTO 63 % (41-73); Platelet Count 299 K/mm3 (150-400); RDW Coefficient Variation 11.6 % (11.7-14.2); RDW Standard Deviation 37.3 fL (35.1-46.3); Red Blood Cell Count 5.19 M/mm3 (4.30-5.90); White Blood Cell Count 8.91 K/mm3 (4.00-11.30)
--- NOTE | 2019-09-18 11:09 | NUR ---
Initial palliative care consult: Jun is a 53 year old gentleman with a history of DM, CAD, PVD, necrotizing fascitis, GERD, polysubstance abuse, osteomylitis, hepatitis C and chronic foot ulcers. He was admitted on 09/14/19 with a right foot wound. He had an amputation in the right forefoot area. His dressing is currently dry and intact. He reports he was told he will be going home today. Dr. Buckley rounded during my visit with Jun and he will write discharge orders for HH and PO antibiotics. Discussed wound healing and how managing his blood sugars, proper nutrition and smoking cessation effect the healing process. He reports that his daughter is planning to move in with him so that he can take better care of himself. He states he has cut down from 10/16 ppd to now smoking 4 cigarettes a day four days ago. He plans to cut down to 2 cigarettes each day. He states he will not stop "cold turkey" and the nicotine patches did not work for him in the past. Discussed importance of follow up care and contacting MD if his wound shows s/s of infection. Jun reports he has a walker and a wheelchair at home from a previous hospitalization for his necrotizing fascitis. He understands his non-weight bearing restriction. He doesn't drive and will plan to have family and friends take him to his follow up appointments. Educated on importance of taking antibiotics as prescribed and completing the course of antibiotics. Jun states he feels ready for discharge and is looking forward to going home. HH will follow him at home.
[2019-09-18] MEDS ORDERED: Percocet 5-3251 EACH PO (11:39)
[2019-09-18] MEDS ORDERED: Vsl#3 Capsule1 EACH PO (11:40)
[2019-09-18] MEDS ORDERED: BACTRIM DS TAB1 EACH PO (11:41)
--- NOTE | 2019-09-18 12:31 | NUR ---
09/18/19 1231 Kinjal Akhtar VERIFICATIONS: EDIT CHART.
--- NOTE | 2019-09-18 12:35 | NUR ---
PT OUT OF ROOM.
--- NOTE | 2019-09-18 13:17 | NUR ---
DISCHARGED DC'D IVS, CATHETERS INTACT. REVIEWED DC PAPERWORK; PT VERBALIZED UNDERSTANDING. PT LEFT UNIT IN WC W/POSSESSIONS AND DC PAPERWORK IN HAND, ACCOMPANIED BY RIDE.
== END 2019-09-18 13:15 | disposition home or self-care (01) | DRG 617 ==
LOC: ER 12:17 → ERHOLD 15:22 → SURS 15:22
PROVIDERS: Physician Assistant; Podiatrist Foot & Ankle Surgery; ADMIT Hospitalist
PROC: 0Y6M0ZB Detachment at Right Foot, Partial 2nd Ray, Open Approach (ICD-10-PCS; 2019-09-17)
PROC: 0Y6M0ZC Detachment at Right Foot, Partial 3rd Ray, Open Approach (ICD-10-PCS; 2019-09-17)
PROC: 0Y6M0ZD Detachment at Right Foot, Partial 4th Ray, Open Approach (ICD-10-PCS; 2019-09-17)
PROC: 0Y6M0ZF Detachment at Right Foot, Partial 5th Ray, Open Approach (ICD-10-PCS; 2019-09-17)
PROC: 0Y6M0Z9 Detachment at Right Foot, Partial 1st Ray, Open Approach (ICD-10-PCS; principal; 2019-09-17 14:15)
DX: E11.621 Type 2 diabetes mellitus with foot ulcer (principal); M86.8X7 Other osteomyelitis, ankle and foot; E87.1 Hypo-osmolality and hyponatremia; L03.115 Cellulitis of right lower limb; E11.69 Type 2 diabetes mellitus with other specified complication; L97.519 Non-pressure chronic ulcer of other part of right foot with unspecified severity; E11.42 Type 2 diabetes mellitus with diabetic polyneuropathy; E11.65 Type 2 diabetes mellitus with hyperglycemia; E13.51 Other specified diabetes mellitus with diabetic peripheral angiopathy without gangrene; E78.5 Hyperlipidemia, unspecified; F17.210 Nicotine dependence, cigarettes, uncomplicated; F19.10 Other psychoactive substance abuse, uncomplicated; F32.9 Major depressive disorder, single episode, unspecified; G62.9 Polyneuropathy, unspecified; G25.81 Restless legs syndrome; I10 Essential (primary) hypertension; I25.10 Atherosclerotic heart disease of native coronary artery without angina pectoris; I25.2 Old myocardial infarction; I73.9 Peripheral vascular disease, unspecified; K73.9 Chronic hepatitis, unspecified; E11.628 Type 2 diabetes mellitus with other skin complications; Z79.4 Long term (current) use of insulin; K21.9 Gastro-esophageal reflux disease without esophagitis; F41.9 Anxiety disorder, unspecified
CPT/HCPCS: 36415; 73630; 73720; 80048; 80053; 82947; 83605; 85025; 87040; 88307; 96361; 96374-59; 96375-59; 97162; 99285-25; A9270; A9577; J0690; J1170; J1650; J1815; J2250; J2370; J2405; J2704; J3010; J7030; J7120

== ENCOUNTER 2019-09-30 14:54 | Inpatient (IN) | payer MEDICARE, OTHER ==
[~2019-09-30] VITALS: Ht 185.4 cm; Wt 112.0 kg
[~2019-09-30 14:54] MED LIST changes: +BACTRIM DS TAB1 EACH PO; +CEPH250A PO; +Vsl#3 Capsule1 EACH PO
[2019-09-30 16:15] LABS: BASOPHILS ABSOLUTE AUTO 0.11 K/mm3 (0.00-0.23); BASOPHILS PERCENT AUTO 1 % (0-2); EOSINOPHILS ABSOLUTE AUTO 0.17 K/mm3 (0.00-0.68); EOSINOPHILS PERCENT AUTO 2 % (0-6); Hematocrit 46.3 % (37.0-53.0); Hemoglobin 15.7 g/dL (13.5-17.5); IMMATURE GRAN ABSOLUTE AUTO 0.09 K/mm3 (0.00-0.10); IMMATURE GRAN PERCENT AUTO 1 % (0-1); LYMPHOCYTES ABSOLUTE AUTO 2.46 K/mm3 (0.84-5.20); LYMPHOCYTES PERCENT AUTO 28 % (21-46); MONOCYTES ABSOLUTE AUTO 0.57 K/mm3 (0.16-1.47); MONOCYTES PERCENT AUTO 7 % (4-13); Mean Corpuscular HGB Conc 33.9 g/dL (31.5-36.5); Mean Corpuscular Volume 86 fL (80-100); Mean Platelet Volume 10.3 fL (9.1-12.4); NEUTROPHILS PERCENT AUTO 61 % (41-73); Platelet Count 295 K/mm3 (150-400); RDW Coefficient Variation 12.2 % (11.7-14.2); RDW Standard Deviation 37.8 fL (35.1-46.3); Red Blood Cell Count 5.41 M/mm3 (4.30-5.90)
[2019-09-30 16:40] LABS: Alanine Aminotransfer (ALT/SGP 29 U/L (12-78); Albumin/Globulin Ratio 0.5 (0.8-1.8); Alk Phos 194 U/L (50-136); Anion Gap 8 mmol/L (6-16); Aspartate Aminotrans (AST/SGOT 14 U/L (12-37); Bilirubin, Total 0.2 mg/dL (0.1-1.0); Blood Urea Nitrogen 40 mg/dL (8-24); Bun/Creatinine Ratio 35.7 (12.0-20.0); CO2, Blood 22 mmol/L (21-32); Calcium, Blood 9.1 mg/dL (8.5-10.1); Chloride, Blood 100 mmol/L (98-108); Creatinine, Blood 1.12 mg/dL (0.60-1.20); Globulin, Blood 5.6 g/dL (2.2-4.0); Glomerular Filtration Rate >60 (60-); Glucose, Blood 519 mg/dL (70-99); Potassium, Blood 4.8 mmol/L (3.5-5.5); Sodium, Blood 130 mmol/L (136-145); Total Protein, Blood 8.6 g/dL (6.4-8.2)
--- NOTE | 2019-10-01 01:49 | NUR ---
pt outside to smoke x 3, has returned smelling of marijuana, pt's daughter as well
[2019-10-01 04:27] LABS: Hematocrit 42.9 % (37.0-53.0); Hemoglobin 14.3 g/dL (13.5-17.5); Mean Corpuscular HGB 28.9 pg (26.0-34.0); Mean Corpuscular HGB Conc 33.3 g/dL (31.5-36.5); Mean Corpuscular Volume 87 fL (80-100); Mean Platelet Volume 10.1 fL (9.1-12.4); Platelet Count 239 K/mm3 (150-400); RDW Coefficient Variation 12.2 % (11.7-14.2); RDW Standard Deviation 38.5 fL (35.1-46.3); Red Blood Cell Count 4.94 M/mm3 (4.30-5.90); White Blood Cell Count 7.62 K/mm3 (4.00-11.30)
[2019-10-01 04:41] LABS: Anion Gap 5 mmol/L (6-16); Blood Urea Nitrogen 33 mg/dL (8-24); Bun/Creatinine Ratio 34.9 (12.0-20.0); CO2, Blood 26 mmol/L (21-32); Calcium, Blood 8.8 mg/dL (8.5-10.1); Chloride, Blood 105 mmol/L (98-108); Creatinine, Blood 0.95 mg/dL (0.60-1.20); Glomerular Filtration Rate >60 (60-); Glucose, Blood 352 mg/dL (70-99); Potassium, Blood 4.4 mmol/L (3.5-5.5); Sodium, Blood 136 mmol/L (136-145)
--- NOTE | 2019-10-01 05:37 | NUR ---
shift summary: vss, no acute changes, pt NPO after 0100, tolerated PO intake prior to that, no n/v. pt voiding >500 ml this shift. pt's daughter stayed with him, escorted pt outside x 4 this shift. pt remained a/0 x 4, pleasant/cooperative. pt states pain controlled to a tolerable level following medication per mar, rated at 4/10 following analgesia. surgical packet repared, MRI screening form complete. pt states he has severe claustrophobia and is concerned about MRI
--- NOTE | 2019-10-01 10:19 | NUR ---
PT OUT OF ROOM
--- NOTE | 2019-10-01 13:00 | NUR ---
pt back from MRI
--- NOTE | 2019-10-01 13:04 | NUR ---
PT BACK TO ROOM FROM OUTSIDE.
--- NOTE | 2019-10-01 13:37 | NUR ---
PT OUTSIDE IN WC ACCOMPANIED BY DAUGHTER.
--- NOTE | 2019-10-01 17:51 | NUR ---
SUMMARY NO ACUTE CHANGES T/O SHIFT. PLAN TO GO TO SURGERY W/DR DEGROOT THIS EVENING. PT HAS BEEN NPO T/O SHIFT. HELD 1800 COVERAGE FOR CBG OF 181 DUE TO NPO STATUS AND FACT THAT PT DROPPED FROM 300 TO 181 AFTER 10 UNITS HUMALOG AT LUNCHTIME COVERAGE. PT INDEPENDENT IN ROOM. GOES OUT FREQUENTLY TO SMOKE. DR DEGROOT EDUCATED PT ON IMPORTANCE OF SMOKING CESSATION. USES CALL LIGHT APPROPRIATELY. DAUGHTER ROOMING IN.
--- NOTE | 2019-10-01 22:09 | NUR ---
CBG SPOKE TO BRUNILDA Byers/Marleny CBG OF 402 PER SLIDING SCALE ORDERS. GAVE NOVOLOG EARLY AND LANTUS SCHEDULED. WILL CONTINUE TO MONITOR PATIENTS GLUCOSE PER ORDERS AT MIDNIGHT.
--- NOTE | 2019-10-02 04:18 | NUR ---
SHIFT SUMMARY AAOX4, VSS. PATIENT NPO SINCE MIDNIGHT. CHLOROHEXADINE SHOWER TAKEN. PATIENT FREQUENTLY OUT TO SMOKE UNDER OWN POWER. MEDICATED FOR PAIN PER EMAR. TOLERATING WELL. NELDA WRAP IN PLACE ON LEFT FOOT. DAUGHTER IN ROOM DURING SHIFT. PLAN IS FOR OR TODAY.
[2019-10-02 05:35] LABS: BASOPHILS ABSOLUTE AUTO 0.13 K/mm3 (0.00-0.23); BASOPHILS PERCENT AUTO 2 % (0-2); EOSINOPHILS ABSOLUTE AUTO 0.25 K/mm3 (0.00-0.68); EOSINOPHILS PERCENT AUTO 3 % (0-6); Hematocrit 48.7 % (37.0-53.0); IMMATURE GRAN ABSOLUTE AUTO 0.07 K/mm3 (0.00-0.10); IMMATURE GRAN PERCENT AUTO 1 % (0-1); LYMPHOCYTES ABSOLUTE AUTO 2.36 K/mm3 (0.84-5.20); LYMPHOCYTES PERCENT AUTO 31 % (21-46); MONOCYTES ABSOLUTE AUTO 0.61 K/mm3 (0.16-1.47); MONOCYTES PERCENT AUTO 8 % (4-13); Mean Corpuscular HGB 28.7 pg (26.0-34.0); Mean Corpuscular HGB Conc 32.9 g/dL (31.5-36.5); Mean Corpuscular Volume 87 fL (80-100); NEUTROPHILS PERCENT AUTO 56 % (41-73); Platelet Count 259 K/mm3 (150-400); RDW Coefficient Variation 12.6 % (11.7-14.2); RDW Standard Deviation 39.2 fL (35.1-46.3); Red Blood Cell Count 5.58 M/mm3 (4.30-5.90); White Blood Cell Count 7.72 K/mm3 (4.00-11.30)
[2019-10-02 06:31] LABS: Anion Gap 9 mmol/L (6-16); Blood Urea Nitrogen 22 mg/dL (8-24); Bun/Creatinine Ratio 23.2 (12.0-20.0); CO2, Blood 23 mmol/L (21-32); Calcium, Blood 9.4 mg/dL (8.5-10.1); Chloride, Blood 104 mmol/L (98-108); Creatinine, Blood 0.95 mg/dL (0.60-1.20); Glomerular Filtration Rate >60 (60-); Glucose, Blood 202 mg/dL (70-99); Potassium, Blood 4.4 mmol/L (3.5-5.5); Sodium, Blood 136 mmol/L (136-145); Vancomycin, Trough 14.8 ug/mL (5.0-10.0)
--- NOTE | 2019-10-02 06:35 | NUR ---
PT LEFT TO OR VIA GURNEY. DAUGHTER WITH PATIENT.
--- NOTE | 2019-10-02 06:49 | NUR ---
History, Chart, Medications and Allergies reviewed before start of procedure. Lungs clear T/O to Auscultation. Patient confirms NPO status and agrees with scheduled surgery. Pre-Op teaching done. Pt verbalizes understanding.
--- NOTE | 2019-10-02 09:01 | NUR ---
PT ARRIVED TO UNIT FROM PACU DRESSING W/WOUND VAC TO RLE CDI. PT REPORTS PAIN 7/10; MEDICATED PER ORDERS. VSS. CALL LIGHT IN REACH.
--- NOTE | 2019-10-02 10:30 | NUR ---
PT OUTSIDE IN .
--- NOTE | 2019-10-02 10:43 | NUR ---
pt back to room
--- NOTE | 2019-10-02 11:16 | NUR ---
PT OUT OF ROOM IN
--- NOTE | 2019-10-02 14:35 | NUR ---
PT OUT OF ROOM IN
--- NOTE | 2019-10-02 17:37 | NUR ---
SUMMARY PT S/P I&D AND REVISION OF FOOT INCISION THIS AM. WOUND VAC TO RLE. PT HAS BEEN OUTSIDE MULTIPLE TIMES POST OP IN WC; ADVISED PT TO MAINTAIN NONWB STATUS TO RLE PER ORDERS. MEDICATED PT PER ORDERS FOR PAIN. COVERED CBGS PER ORDERS. PT TOLERATING DIET. DAUGHTER ROOMING IN. CALL LIGHT IN REACH.
--- NOTE | 2019-10-02 17:46 | NUR ---
PT OUT OF ROOM IN .
--- NOTE | 2019-10-03 05:48 | NUR ---
SHIFT SUMMARY WOUND VAC TO R FT DRAINING SCANT AMOUNT OF BRIGHT RED DRAINAGE. SUCTION INTACT. NELDA WRAP AROUND FOOT C/D/I. PT PAIN MANAGED WITH PO OXYCODONE TWICE AND IV DILAUDID TWICE. IV VANCOMYCIN ADMINISTERED PER EMAR. NS c 20MEQ KCL INFUSING AT 75 ML/HR. PT OUT TO SMOKE SEVERAL TIMES T/O THE NIGHT. NWB RLE, AMBULATES VIA W/C. DAUGHTER AT BEDSIDE. WILL CONT TO MONITOR AND PROVIDE CARE UNTIL PRESUMED BY ONCOMING RN.
--- NOTE | 2019-10-03 08:45 | NUR ---
pt outside room with daughter
--- NOTE | 2019-10-03 13:08 | NUR ---
pt outside of room x 2 for 20 minutes each time
[2019-10-03] MEDS ORDERED: CEPH500 PO (16:19)
--- NOTE | 2019-10-03 16:35 | NUR ---
DISCHARGE D/C INSTRUCTIONS GIVEN BY ROUSTABOUT CREW. FAMILY IS WITH PATIENT. PERSONAL BELONGINGS SENT HOME WITH PT. INSTRUCTIONS AND RX SCRIPT ALSO SENT WITH PT. PT WILL BE SEEN BY HOME HEALTH AND HAVE VISITS WITH WOUND CARE PER ORDERS. REPORTS NO FURTHER CONCERNS AT THIS TIME. PT WAS GIVEN EVENING DOSE OF BLOOD PRESSURE MEDICATION D/T PT BEING UNABLE TO OBTAIN DOSE FOR THIS EVENING AND PT HAD HIGH BLOOD PRESSURE, PER PT REQUEST. PT IS A/O, VOIDING, TOLERATING PO INTAKE.
== END 2019-10-03 16:29 | disposition home health service (06) | DRG 857 ==
LOC: ER 14:54 → SURS 18:24
PROVIDERS: Physician Assistant; Podiatrist Foot & Ankle Surgery; ADMIT Hospitalist
PROC: 0QBN0ZZ Excision of Right Metatarsal, Open Approach (ICD-10-PCS; principal; 2019-10-02 07:30)
DX: T81.49XA Infection following a procedure, other surgical site, initial encounter (principal); E11.52 Type 2 diabetes mellitus with diabetic peripheral angiopathy with gangrene; I10 Essential (primary) hypertension; E78.5 Hyperlipidemia, unspecified; E11.42 Type 2 diabetes mellitus with diabetic polyneuropathy; F32.9 Major depressive disorder, single episode, unspecified; F17.210 Nicotine dependence, cigarettes, uncomplicated; K21.9 Gastro-esophageal reflux disease without esophagitis; B95.2 Enterococcus as the cause of diseases classified elsewhere; Z79.4 Long term (current) use of insulin
CPT/HCPCS: 36415; 73718; 73721; 80048; 80053; 80202; 82947; 83605; 85025; 85027; 85651; 86140; 87040; 87071; 87075; 87077; 87186; 87205; 96365; 96367; 96375; 99284-25; C9113; J0696; J1170; J2060; J2250; J2405; J2543; J2704; J3010; J3370; J3480; J7030; J7050; J7120

== ENCOUNTER 2019-10-14 08:56 | Inpatient (IN) | payer MEDICARE, OTHER ==
[~2019-10-14] VITALS: Ht 185.4 cm; Wt 109.5 kg
[2019-10-14 10:51] LABS: BASOPHILS ABSOLUTE AUTO 0.11 K/mm3 (0.00-0.23); BASOPHILS PERCENT AUTO 2 % (0-2); EOSINOPHILS ABSOLUTE AUTO 0.11 K/mm3 (0.00-0.68); EOSINOPHILS PERCENT AUTO 2 % (0-6); Hematocrit 50.7 % (37.0-53.0); Hemoglobin 16.3 g/dL (13.5-17.5); IMMATURE GRAN ABSOLUTE AUTO 0.04 K/mm3 (0.00-0.10); IMMATURE GRAN PERCENT AUTO 1 % (0-1); LYMPHOCYTES ABSOLUTE AUTO 1.98 K/mm3 (0.84-5.20); LYMPHOCYTES PERCENT AUTO 27 % (21-46); MONOCYTES ABSOLUTE AUTO 0.44 K/mm3 (0.16-1.47); MONOCYTES PERCENT AUTO 6 % (4-13); Mean Corpuscular HGB 28.6 pg (26.0-34.0); Mean Corpuscular HGB Conc 32.1 g/dL (31.5-36.5); Mean Corpuscular Volume 89 fL (80-100); Mean Platelet Volume 10.3 fL (9.1-12.4); NEUTROPHILS ABSOLUTE AUTO 4.69 K/mm3 (1.96-9.15); NEUTROPHILS PERCENT AUTO 64 % (41-73); Platelet Count 236 K/mm3 (150-400); RDW Coefficient Variation 12.9 % (11.7-14.2); RDW Standard Deviation 41.5 fL (35.1-46.3); White Blood Cell Count 7.37 K/mm3 (4.00-11.30)
[2019-10-14 11:19] LABS: Alanine Aminotransfer (ALT/SGP 27 U/L (12-78); Albumin, Blood 3.1 g/dL (3.4-5.0); Albumin/Globulin Ratio 0.6 (0.8-1.8); Alk Phos 162 U/L (50-136); Anion Gap 9 mmol/L (6-16); Aspartate Aminotrans (AST/SGOT 14 U/L (12-37); Bilirubin, Total 0.4 mg/dL (0.1-1.0); Blood Urea Nitrogen 23 mg/dL (8-24); CO2, Blood 20 mmol/L (21-32); Calcium, Blood 9.3 mg/dL (8.5-10.1); Chloride, Blood 107 mmol/L (98-108); Creatinine, Blood 0.88 mg/dL (0.60-1.20); Globulin, Blood 5.1 g/dL (2.2-4.0); Glomerular Filtration Rate >60 (60-); Glucose, Blood 310 mg/dL (70-99); Potassium, Blood 4.3 mmol/L (3.5-5.5); Sodium, Blood 136 mmol/L (136-145); Total Protein, Blood 8.2 g/dL (6.4-8.2)
[2019-10-14] MEDS ORDERED: METO50 PO (13:46)
[2019-10-14] MEDS ORDERED: PREG75 PO (13:47)
[2019-10-14] MEDS ORDERED: ROXYBOND5 MG PO (13:47)
[2019-10-14] MEDS ORDERED: ATORVASTATIN CA20 MG PO (13:48)
[2019-10-14] MEDS ORDERED: PRAMIPEXOLE0.125 M1 PO (13:48)
[2019-10-14] MEDS ORDERED: PLAVIX75 MG PO (13:49)
[2019-10-14] MEDS ORDERED: Pantoprazole So20 MG PO (13:49)
[2019-10-14] MEDS ORDERED: BASAGLAR K100 UNIT/1 SC (13:50)
--- NOTE | 2019-10-14 14:58 | NUR ---
PT ARRIVED TO ROOM AT 1455. HOWEVER PT IMMEDIATELY THREW BAG DOWN IN ROOM AND DEMANDED TO "GO OUTSIDE FOR SOME FRESH AIR." HE SAID HE JUST WANTS TO CALM DOWN AND THEN HE'LL RETURN FOR ADMISSION PROCESS. NURSE INTRUCTED PT TO RETURN SOON POSSIBLE BUT NO LONGER THAN 30 MIN. PT AGREES. AWAITING ARRIVAL AT THIS TIME
[2019-10-14] MEDS ORDERED: ROXICODONE5 MG PO (15:39)
--- NOTE | 2019-10-14 19:09 | NUR ---
shift summary PT AXO, ANXIOUS, IRRITABLE AND VERBALLY IMPULSIVE. WHEN PT WAS ASKED TO DESCRIBE HIS PAIN HE STATED THAT "IT FEELS LIKE I WANT TO GRAB YOU AND THROW YOU AGAINST THE WALL." THIS NURSE IMMEDIATELY TOLD PATIENT THAT HE CANNOT THREATEN HIS NURSE LIKE THAT AND THAT WILL NOT BE TOLERATED. IMMEDIATELY PATIENT APOLOGIZED REPEATEDLY. NURSE THEN GAVE PT SOME EXAMPLE DESCRIPTIVE WORDS THAT HE COULD USE TO MORE APPROPRIATELY DESCRIBE HIS PAIN. PT ON TELE, RUNNING NSR IN 70'S. R. FOOT WOUND DRESSED. PT ASKING TO GO OUTSIDE FREQUENTLY. REPORT GIVEN TO GREEN LUMBER GRADER NURSE WHO WILL ASSUME CARE AT THIS TIME
--- NOTE | 2019-10-15 00:37 | NUR ---
PT CALLED THIS NURSE INTO THE ROOM. UPON ENTERING PT STATED, "I DON'T WANT THIS ANYMORE." HOLDING UP ARM WITH IV AND IV FLUIDS RUNNING INTO IT. PT MOVES AROUND A LOT IN THE BED AND FREQUENTLY PINCHES OFF OF THE IV LINE SO IV PUMP BEEPS. EDUCATED PT ON NEED FOR IV FLUIDS AND PT CONTINUED TO REFUSE. UNHOOKED PT AT THIS TIME. WILL NOTIFY MD WITH NEXT CALL.
[2019-10-15 05:02] LABS: BASOPHILS ABSOLUTE AUTO 0.08 K/mm3 (0.00-0.23); BASOPHILS PERCENT AUTO 1 % (0-2); EOSINOPHILS ABSOLUTE AUTO 0.25 K/mm3 (0.00-0.68); EOSINOPHILS PERCENT AUTO 4 % (0-6); Hematocrit 48.1 % (37.0-53.0); Hemoglobin 15.7 g/dL (13.5-17.5); IMMATURE GRAN ABSOLUTE AUTO 0.05 K/mm3 (0.00-0.10); IMMATURE GRAN PERCENT AUTO 1 % (0-1); LYMPHOCYTES ABSOLUTE AUTO 1.82 K/mm3 (0.84-5.20); LYMPHOCYTES PERCENT AUTO 26 % (21-46); MONOCYTES ABSOLUTE AUTO 0.56 K/mm3 (0.16-1.47); MONOCYTES PERCENT AUTO 8 % (4-13); Mean Corpuscular HGB 28.5 pg (26.0-34.0); Mean Corpuscular HGB Conc 32.6 g/dL (31.5-36.5); Mean Corpuscular Volume 87 fL (80-100); Mean Platelet Volume 10.1 fL (9.1-12.4); NEUTROPHILS ABSOLUTE AUTO 4.35 K/mm3 (1.96-9.15); NEUTROPHILS PERCENT AUTO 61 % (41-73); Platelet Count 223 K/mm3 (150-400); RDW Coefficient Variation 12.7 % (11.7-14.2); RDW Standard Deviation 40.6 fL (35.1-46.3); Red Blood Cell Count 5.51 M/mm3 (4.30-5.90); White Blood Cell Count 7.11 K/mm3 (4.00-11.30)
[2019-10-15 05:18] LABS: International Normalized Ratio 0.94
--- NOTE | 2019-10-15 05:25 | NUR ---
SHIFT SUMMARY PT PLEASANT MOST OF THE NIGHT, DID BECOME UPSET FOR A SHORT WHILE AND REFUSED HIS IV FLUIDS. WAS ABLE TO BEGIN INFUSING AGAIN SEVERAL HOURS LATER. PT ASKS TO BE UNHOOKED FREQUENTLY TO GO OUTSIDE TO SMOKE. WOUND TO RIGHT FOOT DRESSED BY DAY RN JUST BEFORE SHIFT CHANGE, DRESSING REMAINED CLEAN/DRY/INTACT THROUGHOUT THE NIGHT. PT AMBULATES INDEPENDENTLY IN THE ROOM. HAS PERSONAL WHEELCHAIR IN THE ROOM. MEDICATED X 1 W/ 2 MG PO DILAUDID FOR PAIN TO R FOOT. OTHERWISE NO ACUTE CHANGES THIS SHIFT. VSS. WILL CONTINUE TO MONITOR AND REPORT TO DAY RN.
[2019-10-15 05:27] LABS: Alanine Aminotransfer (ALT/SGP 30 U/L (12-78); Albumin/Globulin Ratio 0.6 (0.8-1.8); Alk Phos 148 U/L (50-136); Anion Gap 8 mmol/L (6-16); Aspartate Aminotrans (AST/SGOT 17 U/L (12-37); Bilirubin, Total 0.5 mg/dL (0.1-1.0); Blood Urea Nitrogen 21 mg/dL (8-24); CO2, Blood 24 mmol/L (21-32); Calcium, Blood 9.1 mg/dL (8.5-10.1); Chloride, Blood 103 mmol/L (98-108); Creatinine, Blood 0.88 mg/dL (0.60-1.20); Globulin, Blood 4.9 g/dL (2.2-4.0); Glomerular Filtration Rate >60 (60-); Glucose, Blood 269 mg/dL (70-99); Magnesium, Blood 1.8 mg/dL (1.6-2.4); Potassium, Blood 4.1 mmol/L (3.5-5.5); Sodium, Blood 135 mmol/L (136-145); Total Protein, Blood 7.9 g/dL (6.4-8.2)
--- NOTE | 2019-10-15 07:55 | NUR ---
UNABLE TO LOCATE PATIENT FOR INSULIN DOSING
--- NOTE | 2019-10-15 09:26 | NUR ---
PATIMARINO DID NOT EAT BREAKFAST THIS SHIFT DUE TO BEING NPO AT THIS TIME FOR A PROCEDURE.
--- NOTE | 2019-10-15 10:53 | NUR ---
UNABLE TO LOCATE PATIENT FOR ANTIBIOTIC ADMINISTRATION
--- NOTE | 2019-10-15 18:45 | NUR ---
SHIFT SUMMARY OX4. SELF TRANSFERS TO W/C TO GO DOWNSTAIR MULTIPLE TIMES THIS SHIFT. SCHEDULED FOR RIGHT LOWER EXT AMPUTATION WITH DR. DEGROOT IN A.M. NPO AFTER MIDNIGHT. EATING AND DRINKING WELL. PAIN MEDS GIVEN PER MD ORDER. ASHLY THORNTON AND HS.
--- NOTE | 2019-10-16 04:35 | NUR ---
Shift Summary Patient slept intemittently overnight. He went outside to "get some fresh air" twice, and he communicated his anxiety about upcoming procedure. He has been pleasant and cooperative with cares. PRN fentanyl has been effective for right foot pain. Patient plans to shower early this AM, and will replace bedsheets in preparation for surgery.
[2019-10-16 04:40] LABS: BASOPHILS ABSOLUTE AUTO 0.09 K/mm3 (0.00-0.23); BASOPHILS PERCENT AUTO 1 % (0-2); EOSINOPHILS ABSOLUTE AUTO 0.21 K/mm3 (0.00-0.68); EOSINOPHILS PERCENT AUTO 3 % (0-6); Hematocrit 46.3 % (37.0-53.0); Hemoglobin 15.2 g/dL (13.5-17.5); IMMATURE GRAN ABSOLUTE AUTO 0.06 K/mm3 (0.00-0.10); IMMATURE GRAN PERCENT AUTO 1 % (0-1); LYMPHOCYTES PERCENT AUTO 22 % (21-46); MONOCYTES ABSOLUTE AUTO 0.52 K/mm3 (0.16-1.47); MONOCYTES PERCENT AUTO 7 % (4-13); Mean Corpuscular HGB 28.8 pg (26.0-34.0); Mean Corpuscular HGB Conc 32.8 g/dL (31.5-36.5); Mean Corpuscular Volume 88 fL (80-100); Mean Platelet Volume 10.4 fL (9.1-12.4); NEUTROPHILS ABSOLUTE AUTO 5.22 K/mm3 (1.96-9.15); NEUTROPHILS PERCENT AUTO 67 % (41-73); Platelet Count 210 K/mm3 (150-400); RDW Coefficient Variation 12.8 % (11.7-14.2); RDW Standard Deviation 41.1 fL (35.1-46.3); Red Blood Cell Count 5.27 M/mm3 (4.30-5.90)
[2019-10-16 04:58] LABS: Anion Gap 6 mmol/L (6-16); Blood Urea Nitrogen 24 mg/dL (8-24); Bun/Creatinine Ratio 21.2 (12.0-20.0); CO2, Blood 26 mmol/L (21-32); Calcium, Blood 8.9 mg/dL (8.5-10.1); Chloride, Blood 105 mmol/L (98-108); Creatinine, Blood 1.13 mg/dL (0.60-1.20); Glomerular Filtration Rate >60 (60-); Glucose, Blood 255 mg/dL (70-99); Sodium, Blood 137 mmol/L (136-145)
--- NOTE | 2019-10-16 13:34 | NUR ---
ASSUMED CARE OF PATIENT FROM CARLO SOTELO. I AGREE WITH PREVIOUS NETWORK DESIGN ARCHITECT OF PATIENT AND NO CHANGES AT THIS TIME. PATIENT REPORTS PAIN IN FOOT BUT REQUESTS FENTANYL BECAUSE THE OXY HAS NOT BEEN EFFECTIVE. PATIENT ALREADY BACK OUTSIDE IN HIS WHEELCHAIR.
--- NOTE | 2019-10-16 18:51 | NUR ---
SHIFT SUMMARY MEDICATED FOR PAIN X2 SINCE I AUUMED CARE OF PATIENT. DR BRUNO IN TO SEE PATIENT AND PLAN FOR R BKA TOMORROW AFTERNOON. NPO AT MIDNIGHT. PATIENT FREQUENTLY OUTSIDE, MORE OFTEN OUTSIDE THAN IN HIS ROOM. MADE AWARE BY CARLO SOTELO.
--- NOTE | 2019-10-17 04:57 | NUR ---
Shift Summary Paitient slept well overnight. Medill was well controlled with PRN fentanyl. IV abx administered per EMAR. He has been NPO since Midnight in preparation for right BKA.
--- NOTE | 2019-10-17 10:51 | NUR ---
T/C FROM DR BRUNO, PT NOT GOING TO SURGERY TODAY. DR BRUNO WILL BE BY TO SEE PT LATER TODAY, OKAY TO RESUME DIET
--- NOTE | 2019-10-17 19:12 | NUR ---
SURG CANCELLED TODAY, SEE DR BRUNO'S NOTE. PT MEDICATED FOR PAIN TO RT LEG PER EMAR AND DIET RESUMED. WOUND CARE AND DRESSING CHANGE DONE TO RT LEG BY CIGAR INSPECTOR LISANDRA PHIPPS, PT TOLERATED WELL. WILL CONTINUE TO MONITOR AND REPORT TO ONCOMING RN
--- NOTE | 2019-10-18 04:32 | NUR ---
Shift Summary Patient slept well overnight. He did go outside several times for "fresh air". no tobacco smell was noted. He had c/o pain to the right foot and IV fentanyl was effective for management.
--- NOTE | 2019-10-18 16:59 | NUR ---
Shift Summary A/Ox4, patient frequently in and out of room, though states he does not always go out to smoke. Independent in room and with transferring in/out of wheelchair. Medicated for 6-7/10 pain x 3 with good results. Encouraged patient to take oral pain med per Dr. Mckeon orders; patient was not too happy with this. This RN did explain the need monitor effectiveness of PO pain meds so that in the case patient does go home with PO pain meds, it can be effective for him as he will not be going home with anything intravenously. Will continue to encourage PO pain meds and increase per EMAR if needed. No other compliants or acute concerns at this time.
--- NOTE | 2019-10-19 06:29 | NUR ---
SHIFT SUMMARY PT HAD UNEVENTFUL SHIFT. PT COMPLAINED OF PAIN TO RIGHT FOOT. PT REFUSED NORCO AND WAS GIVEN FENTANYL PER EMAR. PT LEFT FLOOR MULTIPLE TIMES. PT HAS BEEN NPO SINCE MIDNIGHT. PT SLEPT OFF AND ON T/O SHIFT. PT IS AWAKE CURRENTLY IN NO DISTRESS. CALL LIGHT IN REACH.
--- NOTE | 2019-10-19 09:41 | NUR ---
10/19/19 0941 Francy Hong PT ON SCHEDULED ANTIBIOTICS
--- NOTE | 2019-10-19 13:31 | NUR ---
POST OP ARRIVAL TO UNIT AT APPROX 1230 S/P RIGHT BKA. PT IN SEVERE 10/10 PAIN AND CAME TO THE UNIT IRRITABLE, ANGRY, AND DEMANDING PAIN MEDICATION. NEW ORDER FOR DILAUDID OBTAINED AND GIVEN. PT STILL DEMANDING MORE PAIN MEDICATIONS MINUTES AFTER RECEIVING DILAUDID. MEDICATED IN PACU WITH FENTANYL JUST BEFORE ARRIVAL TO UNIT. PT ALSO GIVEN 2 NORCO WITH CRACKERS. R BKA STUMP SOCK AND NELDA WRAP APPEAR CDI AND ELEVATED ON PILLOWS. ENCOURAGING PT TO TRY TO REST AND DEEP BREATHE. HE DOES APPEAR TO BE LESS IRRITABLE AND ANGRY AT THIS TIME. VS IN PROGRESS AND STABLE. IV ABX INFUSING PER ORDERS. ORIENTED TO UNIT. CALL LIGHT WITHIN REACH.
--- NOTE | 2019-10-19 14:00 | NUR ---
Attempted to give report to receiving RN Carin, receiving RN had already read through notes and declined report at this time. Will be available for any questions.
--- NOTE | 2019-10-19 16:21 | NUR ---
SHIFT SUMMARY PT DOING BETTER ANESTHESIA WEARS OFF. MEDICATING WITH 1 MG IV DILAUDID AND 2 NORCO FOR PAIN PRN. STUMP SOCK AND DRESSING REMAINS CDI AND ELEVATED ON PILLOWS. PT SUSI REG DIET WITH NO N/V. USING URINAL TO VOID. POST OP VSS AND COMPLETE. IV ABX PER ORDERS. USES CALL LIGHT APPROPRIATELY.
[2019-10-20 04:13] LABS: BASOPHILS ABSOLUTE AUTO 0.08 K/mm3 (0.00-0.23); BASOPHILS PERCENT AUTO 1 % (0-2); EOSINOPHILS ABSOLUTE AUTO 0.25 K/mm3 (0.00-0.68); EOSINOPHILS PERCENT AUTO 3 % (0-6); Hematocrit 34.6 % (37.0-53.0); Hemoglobin 11.2 g/dL (13.5-17.5); IMMATURE GRAN ABSOLUTE AUTO 0.04 K/mm3 (0.00-0.10); IMMATURE GRAN PERCENT AUTO 0 % (0-1); LYMPHOCYTES ABSOLUTE AUTO 2.34 K/mm3 (0.84-5.20); LYMPHOCYTES PERCENT AUTO 25 % (21-46); MONOCYTES ABSOLUTE AUTO 0.79 K/mm3 (0.16-1.47); MONOCYTES PERCENT AUTO 9 % (4-13); Mean Corpuscular HGB 28.9 pg (26.0-34.0); Mean Corpuscular HGB Conc 32.4 g/dL (31.5-36.5); Mean Corpuscular Volume 89 fL (80-100); Mean Platelet Volume 10.4 fL (9.1-12.4); NEUTROPHILS ABSOLUTE AUTO 5.84 K/mm3 (1.96-9.15); NEUTROPHILS PERCENT AUTO 62 % (41-73); Platelet Count 188 K/mm3 (150-400); RDW Coefficient Variation 13.2 % (11.7-14.2); RDW Standard Deviation 42.5 fL (35.1-46.3); Red Blood Cell Count 3.87 M/mm3 (4.30-5.90); White Blood Cell Count 9.34 K/mm3 (4.00-11.30)
[2019-10-20 04:28] LABS: Albumin, Blood 2.5 g/dL (3.4-5.0); Anion Gap 5 mmol/L (6-16); Blood Urea Nitrogen 25 mg/dL (8-24); Bun/Creatinine Ratio 26.9 (12.0-20.0); CO2, Blood 26 mmol/L (21-32); Calcium, Blood 8.1 mg/dL (8.5-10.1); Chloride, Blood 107 mmol/L (98-108); Creatinine, Blood 0.93 mg/dL (0.60-1.20); Glomerular Filtration Rate >60 (60-); Glucose, Blood 240 mg/dL (70-99); Phosphorus, Blood 2.7 mg/dL (2.5-4.9); Potassium, Blood 4.4 mmol/L (3.5-5.5); Sodium, Blood 138 mmol/L (136-145)
--- NOTE | 2019-10-20 05:35 | NUR ---
PT IN HALLWAY AT THIS TIME VIA WHEELCHAIR. STATES HE IS GOING AT OUTSIDE.
--- NOTE | 2019-10-20 05:42 | NUR ---
PT RETURNED TO ROOM AT THIS TIME.
--- NOTE | 2019-10-20 06:35 | NUR ---
SHIFT SUMMARY POD 1 S/P RIGHT BKA. STUMP SOCK AND NELDA WRAP IN PLACE WITH NO DRAINAGED NOTED. PAIN MANAGED WITH PO AND IV MEDICATIONS. TOLERATING DIET. IND TRANSFER FROM BED TO X1 THIS MORNING, WITH PT TAKING HIMSELF OUTSIDE. RLE ELEVATED ON PILLOW. PT ABLE TO REPOSITION SELF. REPORTS VOIDING IN URINAL IND WITHOUT DIFFICULTY. PLEASANT AND COOPERATIVE T/O SHIFT. CURRENTLY RESTING IN BED WITH CALL LIGHT IN REACH. WILL CONT. TO MONITOR AND GIVE REPORT TO ONCOMING RN.
[2019-10-20] MEDS ORDERED: Nicoderm Cq1 EAC1 TOP (15:42)
[2019-10-20] MEDS ORDERED: HUMALOG KW200 UNIT/1 (15:42)
--- NOTE | 2019-10-20 16:09 | NUR ---
DR. BRUNO NOTIFIED THAT DR. RONDON WROTE DISCHARGE ORDERS. DR. BRUNO ALSO NOTIFIED THAT PT'S BLOOD SUGAR HAS BEEN >200. DRESSING CHANGE ORDERS PROVIDED. WILL CONTINUE TO MONITOR.
--- NOTE | 2019-10-20 16:33 | NUR ---
DISCHARGE PT PROVIDED WITH WRITTEN AND VERBAL DISCHARGE INSTRUCTIONS. PT REPORTED HE WAS NOT PLEASED WITH THE DISCHARGE PLAN. PT EDUCATED THAT HE IS MEDICALLY STABLE AND BOTH DR. RONDON AND DR. BRUNO FELT PT COULD DISCHARGE TODAY. PT WAS PROVIDED WITH PRESCRIPTION FOR PAIN MEDICATION. PT CONTINUES TO RATE PAIN AT 8/10 BUT IS ABLE TO GO OUTSIDE FREQUENTLY. PT SMILING AND CHATTING WITH A FRIEND UPON DISCHARGE. PT EDUCATED TO FOLLOW A DIABETIC DIET AND QUIT SMOKING FOR BEST WOUND HEALING RESULTS. PT EDUCATED TO LEAVE HIS DRESSING IN PLACE UNTIL FOLLOW UP IN [address] BRUNO. DRESSING C/D/I AT TIME OF DISCHARGE. PT ESCORTED OUT IN W/C BY HIS FRIEND.
== END 2019-10-20 16:28 | disposition home or self-care (01) | DRG 617 ==
LOC: ER 08:56 → SURS 14:02 → MEDS 14:02 → SURS 10-19 11:59
PROVIDERS: Emergency Medicine; Family Medicine; Nurse Practitioner Acute Care; Orthopaedic Surgery; ADMIT Internal Medicine
PROC: 0Y6H0Z3 Detachment at Right Lower Leg, Low, Open Approach (ICD-10-PCS; principal; 2019-10-19 09:00)
DX: E11.69 Type 2 diabetes mellitus with other specified complication (principal); M86.671 Other chronic osteomyelitis, right ankle and foot; E11.65 Type 2 diabetes mellitus with hyperglycemia; Z79.4 Long term (current) use of insulin; F17.210 Nicotine dependence, cigarettes, uncomplicated; E11.42 Type 2 diabetes mellitus with diabetic polyneuropathy; I25.10 Atherosclerotic heart disease of native coronary artery without angina pectoris; K21.9 Gastro-esophageal reflux disease without esophagitis; B18.2 Chronic viral hepatitis C; E11.40 Type 2 diabetes mellitus with diabetic neuropathy, unspecified; E11.59 Type 2 diabetes mellitus with other circulatory complications
CPT/HCPCS: 36415; 73718; 80048; 80053; 80069; 82947; 83605; 83735; 85025; 85610; 85651; 86140; 87040; 88307; 93005; 93010; 96361; 96374; 96375; 96376; 97110; 97116; 97162; 97165; 97530; 99285-25; A9270-GY; J0290; J1170; J1885; J2060; J2405; J2704; J2765; J3010; J7030; J7050; J7120

== ENCOUNTER 2019-11-27 17:30 | Emergency (ER) | payer MEDICARE, OTHER ==
[~2019-11-27] VITALS: Ht 185.4 cm; Wt 108.9 kg
[~2019-11-27 17:30] MED LIST changes: +ATORVASTATIN CA20 MG PO; +BASAGLAR K100 UNIT/1 SC; +HUMALOG KW200 UNIT/1; +METO50 PO; +PLAVIX75 MG PO; +PRAMIPEXOLE0.125 M1 PO; +Pantoprazole So20 MG PO; +ROXICODONE5 MG PO; +ROXYBOND5 MG PO
== END 2019-11-27 18:36 | disposition left against medical advice (07) ==
LOC: ER 17:30
DX: Z53.21 Procedure and treatment not carried out due to patient leaving prior to being seen by health care provider (principal)

== ENCOUNTER 2020-11-26 17:03 | Emergency (ER) | payer OTHER ==
[~2020-11-26] VITALS: Ht 185.4 cm; Wt 113.4 kg
[2020-11-26 18:08] LABS: Alanine Aminotransfer (ALT/SGP 32 U/L (12-78); Albumin, Blood 2.9 g/dL (3.4-5.0); Albumin/Globulin Ratio 0.7 (0.8-1.8); Alk Phos 147 U/L (50-136); Anion Gap 5 mmol/L (6-16); Aspartate Aminotrans (AST/SGOT 26 U/L (12-37); Bilirubin, Total 0.4 mg/dL (0.1-1.0); Blood Urea Nitrogen 32 mg/dL (8-24); Bun/Creatinine Ratio 33.3 (12.0-20.0); CO2, Blood 27 mmol/L (21-32); Calcium, Blood 8.6 mg/dL (8.5-10.1); Chloride, Blood 100 mmol/L (98-108); Creatinine, Blood 0.96 mg/dL (0.60-1.20); Glomerular Filtration Rate >60 (60-); Glucose, Blood 319 mg/dL (70-99); Potassium, Blood 4.6 mmol/L (3.5-5.5); Sodium, Blood 132 mmol/L (136-145); Total Protein, Blood 6.9 g/dL (6.4-8.2); Troponin I <0.015 ng/mL (0.000-0.040)
[2020-11-26 18:34] LABS: BASOPHILS ABSOLUTE AUTO 0.09 K/mm3 (0.00-0.23); BASOPHILS PERCENT AUTO 1 % (0-2); EOSINOPHILS ABSOLUTE AUTO 0.18 K/mm3 (0.00-0.68); EOSINOPHILS PERCENT AUTO 2 % (0-6); Hematocrit 49.6 % (37.0-53.0); Hemoglobin 16.1 g/dL (13.5-17.5); IMMATURE GRAN ABSOLUTE AUTO 0.04 K/mm3 (0.00-0.10); IMMATURE GRAN PERCENT AUTO 0 % (0-1); LYMPHOCYTES ABSOLUTE AUTO 2.05 K/mm3 (0.84-5.20); LYMPHOCYTES PERCENT AUTO 19 % (21-46); MONOCYTES ABSOLUTE AUTO 0.74 K/mm3 (0.16-1.47); MONOCYTES PERCENT AUTO 7 % (4-13); Mean Corpuscular HGB 25.7 pg (26.0-34.0); Mean Corpuscular HGB Conc 32.5 g/dL (31.5-36.5); Mean Corpuscular Volume 79 fL (80-100); Mean Platelet Volume 10.9 fL (9.1-12.4); NEUTROPHILS ABSOLUTE AUTO 7.74 K/mm3 (1.96-9.15); NEUTROPHILS PERCENT AUTO 71 % (41-73); Platelet Count 257 K/mm3 (150-400); RDW Standard Deviation 36.9 fL (35.1-46.3); Red Blood Cell Count 6.26 M/mm3 (4.30-5.90); White Blood Cell Count 10.84 K/mm3 (4.00-11.30)
[2020-11-26] MEDS ORDERED: LISI20 PO (19:38)
== END 2020-11-26 21:08 | disposition home or self-care (01) ==
LOC: ER 17:03
PROVIDERS: Physician Assistant
DX: R10.9 Unspecified abdominal pain (principal); E86.0 Dehydration; E11.65 Type 2 diabetes mellitus with hyperglycemia; M54.5 Low back pain; R11.2 Nausea with vomiting, unspecified; E11.51 Type 2 diabetes mellitus with diabetic peripheral angiopathy without gangrene; I25.10 Atherosclerotic heart disease of native coronary artery without angina pectoris; K21.9 Gastro-esophageal reflux disease without esophagitis; F17.210 Nicotine dependence, cigarettes, uncomplicated; Z79.4 Long term (current) use of insulin; Z79.899 Other long term (current) drug therapy; Z79.02 Long term (current) use of antithrombotics/antiplatelets; Z88.8 Allergy status to other drugs, medicaments and biological substances
CPT/HCPCS: 36415; 71046; 80053; 84484; 85025; 93005; 93010; 99284-25

== ENCOUNTER 2021-10-16 14:57 | Emergency (ER) | payer OTHER ==
[~2021-10-16] VITALS: Ht 185.4 cm; Wt 108.9 kg
[~2021-10-16 14:57] MED LIST changes: +LISI20 PO
[2021-10-16 15:23] LABS: BASOPHILS ABSOLUTE AUTO 0.08 K/mm3 (0.00-0.23); BASOPHILS PERCENT AUTO 1 % (0-2); EOSINOPHILS ABSOLUTE AUTO 0.12 K/mm3 (0.00-0.68); EOSINOPHILS PERCENT AUTO 2 % (0-6); Hematocrit 53.5 % (37.0-53.0); Hemoglobin 17.4 g/dL (13.5-17.5); IMMATURE GRAN ABSOLUTE AUTO 0.04 K/mm3 (0.00-0.10); IMMATURE GRAN PERCENT AUTO 1 % (0-1); LYMPHOCYTES ABSOLUTE AUTO 1.45 K/mm3 (0.84-5.20); LYMPHOCYTES PERCENT AUTO 21 % (21-46); MONOCYTES PERCENT AUTO 12 % (4-13); Mean Corpuscular HGB 27.3 pg (26.0-34.0); Mean Corpuscular HGB Conc 32.5 g/dL (31.5-36.5); Mean Corpuscular Volume 84 fL (80-100); Mean Platelet Volume 10.7 fL (9.1-12.4); NEUTROPHILS ABSOLUTE AUTO 4.44 K/mm3 (1.96-9.15); NEUTROPHILS PERCENT AUTO 64 % (41-73); Platelet Count 194 K/mm3 (150-400); RDW Coefficient Variation 12.8 % (11.7-14.2); RDW Standard Deviation 39.1 fL (35.1-46.3); Red Blood Cell Count 6.37 M/mm3 (4.30-5.90); White Blood Cell Count 6.93 K/mm3 (4.00-11.30)
[2021-10-16 16:07] LABS: Bun/Creatinine Ratio 37.3 (12.0-20.0); Calcium, Blood 9.2 mg/dL (8.5-10.1); Creatinine, Blood 1.26 mg/dL (0.60-1.20); Potassium, Blood 4.6 mmol/L (3.5-5.5)
[2021-10-16 16:10] LABS: Thyroid Stimulating Hormone 2.98 uIU/mL (0.360-4.800)
[2021-10-16 16:14] LABS: Influenza A, PCR NEGATIVE (NEGATIVE); Influenza B, PCR NEGATIVE (NEGATIVE); Resp Syncytial Virus, PCR NEGATIVE (NEGATIVE); SARS-Cov-2 (COVID-19) PCR, MMC NEGATIVE (NEGATIVE)
[2021-10-16] MEDS ORDERED: AMOCLA875 PO (17:09)
[2021-10-16] MEDS ORDERED: DOXY100 PO (17:09)
== END 2021-10-16 17:40 | disposition home or self-care (01) ==
LOC: ER 14:57
PROVIDERS: Student in an Organized Health Care Education/Training Program
DX: J18.9 Pneumonia, unspecified organism (principal); E86.0 Dehydration; N17.9 Acute kidney failure, unspecified; F17.210 Nicotine dependence, cigarettes, uncomplicated; Z88.8 Allergy status to other drugs, medicaments and biological substances; Z79.899 Other long term (current) drug therapy; I10 Essential (primary) hypertension; Z86.19 Personal history of other infectious and parasitic diseases; I25.10 Atherosclerotic heart disease of native coronary artery without angina pectoris; L98.9 Disorder of the skin and subcutaneous tissue, unspecified; R09.02 Hypoxemia; E11.9 Type 2 diabetes mellitus without complications; Z79.4 Long term (current) use of insulin; K21.9 Gastro-esophageal reflux disease without esophagitis
CPT/HCPCS: 0241U; 71045; 80048; 83735; 84443; 84484; 85025; 93005; 93010; 96365; 96375; 99285-25; A9270; J0696; J1885; J7030

== ENCOUNTER 2021-12-21 18:52 | Emergency (ER) | payer OTHER ==
[~2021-12-21] VITALS: Ht 185.4 cm; Wt 112.0 kg
[~2021-12-21 18:52] MED LIST changes: +DOXY100 PO
[2021-12-21 19:43] LABS: BASOPHILS ABSOLUTE AUTO 0.07 K/mm3 (0.00-0.23); BASOPHILS PERCENT AUTO 1 % (0-2); EOSINOPHILS ABSOLUTE AUTO 0.12 K/mm3 (0.00-0.68); EOSINOPHILS PERCENT AUTO 1 % (0-6); Hematocrit 50.4 % (37.0-53.0); Hemoglobin 16.3 g/dL (13.5-17.5); IMMATURE GRAN ABSOLUTE AUTO 0.04 K/mm3 (0.00-0.10); IMMATURE GRAN PERCENT AUTO 1 % (0-1); LYMPHOCYTES PERCENT AUTO 20 % (21-46); MONOCYTES ABSOLUTE AUTO 0.73 K/mm3 (0.16-1.47); MONOCYTES PERCENT AUTO 9 % (4-13); Mean Corpuscular HGB 27.3 pg (26.0-34.0); Mean Corpuscular HGB Conc 32.3 g/dL (31.5-36.5); Mean Corpuscular Volume 84 fL (80-100); Mean Platelet Volume 11.3 fL (9.1-12.4); NEUTROPHILS ABSOLUTE AUTO 5.92 K/mm3 (1.96-9.15); NEUTROPHILS PERCENT AUTO 69 % (41-73); Platelet Count 204 K/mm3 (150-400); RDW Coefficient Variation 13.6 % (11.7-14.2); RDW Standard Deviation 42.1 fL (35.1-46.3); Red Blood Cell Count 5.98 M/mm3 (4.30-5.90); White Blood Cell Count 8.58 K/mm3 (4.00-11.30)
[2021-12-21 19:56] LABS: Albumin, Blood 2.9 g/dL (3.4-5.0); Albumin/Globulin Ratio 0.8 (0.8-1.8); Bilirubin, Total 0.5 mg/dL (0.1-1.0); Calcium, Blood 9.1 mg/dL (8.5-10.1); Creatinine, Blood 1.4 mg/dL (0.60-1.20); Globulin, Blood 3.8 g/dL (2.2-4.0); Magnesium, Blood 2.2 mg/dL (1.6-2.4); Potassium, Blood 4.7 mmol/L (3.5-5.5); Total Protein, Blood 6.7 g/dL (6.4-8.2)
[2021-12-21 21:13] LABS: Influenza A, PCR NEGATIVE (NEGATIVE); Influenza B, PCR NEGATIVE (NEGATIVE); Resp Syncytial Virus, PCR NEGATIVE (NEGATIVE); SARS-Cov-2 (COVID-19) PCR, MMC NEGATIVE (NEGATIVE)
== END 2021-12-21 22:40 | disposition home or self-care (01) ==
LOC: ER 18:52
PROVIDERS: Student in an Organized Health Care Education/Training Program
DX: N17.9 Acute kidney failure, unspecified (principal); K21.9 Gastro-esophageal reflux disease without esophagitis; Z20.822 Contact with and (suspected) exposure to COVID-19; E11.51 Type 2 diabetes mellitus with diabetic peripheral angiopathy without gangrene; Z79.4 Long term (current) use of insulin; Z79.899 Other long term (current) drug therapy
CPT/HCPCS: 0241U; 71045; 74177; 80053; 83690; 83735; 84484; 85025; 93005; 93010; 96374; 96375; 99285-25; A9270; J1885; J2405; J7030; Q9967

== ENCOUNTER 2023-05-16 01:45 | Day surgery (SDC) | payer OTHER | END 2023-05-16 22:36 | disposition home or self-care (01) | LOC: WOUND 01:45 | DX: E11.622 Type 2 diabetes mellitus with other skin ulcer (principal); L97.822 Non-pressure chronic ulcer of other part of left lower leg with fat layer exposed; I87.2 Venous insufficiency (chronic) (peripheral); E11.51 Type 2 diabetes mellitus with diabetic peripheral angiopathy without gangrene; F17.200 Nicotine dependence, unspecified, uncomplicated; Z88.8 Allergy status to other drugs, medicaments and biological substances; I10 Essential (primary) hypertension | CPT/HCPCS: A9270; G0463 ==

== ENCOUNTER 2023-09-19 12:41 | Emergency (ER) | payer OTHER ==
[~2023-09-19] VITALS: Ht 185.4 cm; Wt 111.1 kg
[2023-09-19 13:10] LABS: BASOPHILS PERCENT AUTO 1 % (0-2); EOSINOPHILS ABSOLUTE AUTO 0.06 K/mm3 (0.00-0.68); EOSINOPHILS PERCENT AUTO 1 % (0-6); Hemoglobin 20.3 g/dL (13.5-17.5); IMMATURE GRAN ABSOLUTE AUTO 0.03 K/mm3 (0.00-0.10); IMMATURE GRAN PERCENT AUTO 0 % (0-1); LYMPHOCYTES ABSOLUTE AUTO 1.87 K/mm3 (0.84-5.20); LYMPHOCYTES PERCENT AUTO 17 % (21-46); MONOCYTES ABSOLUTE AUTO 0.73 K/mm3 (0.16-1.47); MONOCYTES PERCENT AUTO 7 % (4-13); Mean Corpuscular HGB 29.9 pg (26.0-34.0); Mean Corpuscular HGB Conc 34.9 g/dL (31.5-36.5); Mean Corpuscular Volume 86 fL (80-100); Mean Platelet Volume 10.5 fL (9.1-12.4); NEUTROPHILS ABSOLUTE AUTO 8.38 K/mm3 (1.96-9.15); NEUTROPHILS PERCENT AUTO 75 % (41-73); Platelet Count 203 K/mm3 (150-400); RDW Coefficient Variation 12.1 % (11.7-14.2); RDW Standard Deviation 38.1 fL (35.1-46.3); Red Blood Cell Count 6.79 M/mm3 (4.30-5.90); White Blood Cell Count 11.17 K/mm3 (4.00-11.30)
[2023-09-19 13:17] LABS: Hematocrit 58.2 % (37.0-53.0)
[2023-09-19 13:36] LABS: Albumin, Blood 3.1 g/dL (3.4-5.0); Albumin/Globulin Ratio 0.8 (0.8-1.8); Bilirubin, Total 0.6 mg/dL (0.1-1.0); Bun/Creatinine Ratio 24.3 (12.0-20.0); Calcium, Blood 9.6 mg/dL (8.5-10.1); Creatinine, Blood 1.15 mg/dL (0.60-1.20); Globulin, Blood 4.1 g/dL (2.2-4.0); Potassium, Blood 4.3 mmol/L (3.5-5.5); Total Protein, Blood 7.2 g/dL (6.4-8.2)
[2023-09-19] MEDS ORDERED: FAMO20 PO (17:37)
[2023-09-19] MEDS ORDERED: ONDA4ODT MM (17:37)
[2023-09-19 18:00] VITALS: BP 154/79
[2023-09-20] MEDS ORDERED: ADULT GLYCERIN1 EACH PR (13:55)
[2023-09-20] MEDS ORDERED: CONSTULOSE10 GM/155 PO (13:55)
[2023-09-20] MEDS ORDERED: DOCUZEN 8.6-501 EACH PO (13:55)
[2023-09-20] MEDS ORDERED: CITRATE OF MAG296 M4 PO (13:55)
== END 2023-09-19 18:18 | disposition home or self-care (01) ==
LOC: ER 12:41
PROVIDERS: Student in an Organized Health Care Education/Training Program
DX: K80.20 Calculus of gallbladder without cholecystitis without obstruction (principal); E86.0 Dehydration; R07.9 Chest pain, unspecified; M54.9 Dorsalgia, unspecified; I10 Essential (primary) hypertension; F12.90 Cannabis use, unspecified, uncomplicated; E11.9 Type 2 diabetes mellitus without complications; I25.10 Atherosclerotic heart disease of native coronary artery without angina pectoris; I73.9 Peripheral vascular disease, unspecified; K21.9 Gastro-esophageal reflux disease without esophagitis; M86.9 Osteomyelitis, unspecified; F17.210 Nicotine dependence, cigarettes, uncomplicated; Z79.02 Long term (current) use of antithrombotics/antiplatelets; Z79.899 Other long term (current) drug therapy; Z79.4 Long term (current) use of insulin; Z88.8 Allergy status to other drugs, medicaments and biological substances
CPT/HCPCS: 71045; 71275; 74174; 80053; 83690; 84484; 85025; 93005; 93010; 96361; 96374; 96375; 99285-25; A9270; J1170; J1885; J2405; J7030; Q9967

== ENCOUNTER 2023-09-20 10:51 | Emergency (ER) | payer OTHER ==
[~2023-09-20] VITALS: Ht 185.4 cm; Wt 111.1 kg
[~2023-09-20 10:51] MED LIST changes: +FAMO20 PO
[2023-09-20 13:04] LABS: Albumin, Blood 3.2 g/dL (3.4-5.0); Albumin/Globulin Ratio 0.7 (0.8-1.8); Bilirubin, Total 0.9 mg/dL (0.1-1.0); Bun/Creatinine Ratio 22.9 (12.0-20.0); Calcium, Blood 9.4 mg/dL (8.5-10.1); Creatinine, Blood 1.18 mg/dL (0.60-1.20); Globulin, Blood 4.4 g/dL (2.2-4.0); Potassium, Blood 5.5 mmol/L (3.5-5.5); Total Protein, Blood 7.6 g/dL (6.4-8.2)
[2023-09-20 13:05] LABS: BASOPHILS ABSOLUTE AUTO 0.11 K/mm3 (0.00-0.23); BASOPHILS PERCENT AUTO 1 % (0-2); EOSINOPHILS ABSOLUTE AUTO 0.14 K/mm3 (0.00-0.68); EOSINOPHILS PERCENT AUTO 1 % (0-6); Hemoglobin 20.3 g/dL (13.5-17.5); IMMATURE GRAN ABSOLUTE AUTO 0.06 K/mm3 (0.00-0.10); IMMATURE GRAN PERCENT AUTO 1 % (0-1); LYMPHOCYTES ABSOLUTE AUTO 1.96 K/mm3 (0.84-5.20); LYMPHOCYTES PERCENT AUTO 17 % (21-46); MONOCYTES ABSOLUTE AUTO 0.89 K/mm3 (0.16-1.47); MONOCYTES PERCENT AUTO 8 % (4-13); Mean Corpuscular HGB 29.5 pg (26.0-34.0); Mean Corpuscular HGB Conc 34.9 g/dL (31.5-36.5); Mean Corpuscular Volume 84 fL (80-100); NEUTROPHILS ABSOLUTE AUTO 8.11 K/mm3 (1.96-9.15); NEUTROPHILS PERCENT AUTO 72 % (41-73); RDW Standard Deviation 37.6 fL (35.1-46.3); Red Blood Cell Count 6.89 M/mm3 (4.30-5.90); White Blood Cell Count 11.27 K/mm3 (4.00-11.30)
[2023-09-20 13:19] LABS: Hematocrit 58.1 % (37.0-53.0)
[2023-09-20] MEDS ORDERED: DOCUZEN 8.6-501 EACH PO (13:55)
[2023-09-20] MEDS ORDERED: ADULT GLYCERIN1 EACH PR (13:55)
[2023-09-20] MEDS ORDERED: CONSTULOSE10 GM/155 PO (13:55)
[2023-09-20] MEDS ORDERED: CITRATE OF MAG296 M4 PO (13:55)
[2023-09-20 14:37] VITALS: BP 142/95
== END 2023-09-20 14:38 | disposition home or self-care (01) ==
LOC: ER 10:51
PROVIDERS: Student in an Organized Health Care Education/Training Program
DX: K59.00 Constipation, unspecified (principal); R11.0 Nausea; K80.20 Calculus of gallbladder without cholecystitis without obstruction; E11.51 Type 2 diabetes mellitus with diabetic peripheral angiopathy without gangrene; I25.10 Atherosclerotic heart disease of native coronary artery without angina pectoris; F17.210 Nicotine dependence, cigarettes, uncomplicated; Z88.8 Allergy status to other drugs, medicaments and biological substances; Z79.02 Long term (current) use of antithrombotics/antiplatelets; Z79.4 Long term (current) use of insulin; Z79.899 Other long term (current) drug therapy
CPT/HCPCS: 76705; 80053; 85025; 96361; 96374; 99285-25; A9270; J1790; J7030

== ENCOUNTER 2025-03-21 10:52 | Inpatient (IN) | payer OTHER ==
[~2025-03-21] VITALS: Ht 175.3 cm; Wt 136.1 kg
[~2025-03-21 10:52] MED LIST changes: +ADULT GLYCERIN1 EACH PR; -ATORVASTATIN CA20 MG PO; +CITRATE OF MAG296 M4 PO; +CONSTULOSE10 GM/155 PO; +DOCUZEN 8.6-501 EACH PO; +HUMALOG KW100 UNIT/1; -HUMALOG KW200 UNIT/1; +LIPITOR80 MG PO; -LISI20 PO; +PRAMIPEXOLE DIHY1 MG PO; -PRAMIPEXOLE0.125 M1 PO; +ZESTORETIC 20-121 EA PO
[2025-03-21] MEDS ORDERED: Albuterol 2.5 MG/3 ML VIAL INH SCH (11:00)
[2025-03-21] MEDS ORDERED: MethylPREDNISolone Sod Succ 125 MG Vial IV ONE (11:00)
[2025-03-21 11:09] LABS: Base Excess Venous 0.8 mmol/L; Bicarbonate Venous 24.9 mmol/L (24.0-30.0); pH Blood Venous 7.39 (7.34-7.37)
[2025-03-21 11:12] LABS: BASOPHILS ABSOLUTE AUTO 0.07 K/mm3 (0.00-0.23); BASOPHILS PERCENT AUTO 1 % (0-2); EOSINOPHILS ABSOLUTE AUTO 0.03 K/mm3 (0.00-0.68); EOSINOPHILS PERCENT AUTO 0 % (0-6); Hematocrit 46.4 % (37.0-53.0); Hemoglobin 15.1 g/dL (13.5-17.5); IMMATURE GRAN ABSOLUTE AUTO 0.03 K/mm3 (0.00-0.10); IMMATURE GRAN PERCENT AUTO 0 % (0-1); LYMPHOCYTES ABSOLUTE AUTO 0.83 K/mm3 (0.84-5.20); LYMPHOCYTES PERCENT AUTO 10 % (21-46); MONOCYTES ABSOLUTE AUTO 1.01 K/mm3 (0.16-1.47); MONOCYTES PERCENT AUTO 12 % (4-13); Mean Corpuscular HGB 28.7 pg (26.0-34.0); Mean Corpuscular HGB Conc 32.5 g/dL (31.5-36.5); Mean Corpuscular Volume 88 fL (80-100); Mean Platelet Volume 10.2 fL (9.1-12.4); NEUTROPHILS ABSOLUTE AUTO 6.65 K/mm3 (1.96-9.15); NEUTROPHILS PERCENT AUTO 77 % (41-73); Platelet Count 143 K/mm3 (150-400); RDW Coefficient Variation 13.5 % (11.7-14.2); RDW Standard Deviation 43.6 fL (35.1-46.3); Red Blood Cell Count 5.27 M/mm3 (4.30-5.90); White Blood Cell Count 8.62 K/mm3 (4.00-11.30)
[2025-03-21 11:34] LABS: Albumin, Blood 2.6 g/dL (3.4-5.0); Albumin/Globulin Ratio 0.7 (0.8-1.8); Bilirubin, Total 0.4 mg/dL (0.1-1.0); Bun/Creatinine Ratio 24.8 (12.0-20.0); Calcium, Blood 8.6 mg/dL (8.5-10.1); Creatinine, Blood 1.25 mg/dL (0.60-1.20); Globulin, Blood 3.7 g/dL (2.2-4.0); Potassium, Blood 3.9 mmol/L (3.5-5.5); Total Protein, Blood 6.3 g/dL (6.4-8.2)
[2025-03-21] MEDS ORDERED: CefTRIAXone Sodium 1,000 MG in NS 100 ML IV ONE (11:55)
[2025-03-21] MEDS ORDERED: Ipratropium/Albuterol SulF 2.5-0.5MG/3 ML Amp INH ONE (12:00)
[2025-03-21] MEDS ORDERED: Insulin Glargine-Yfgn 100 Unit/mL 3 ML SYR SC SCH (16:00)
[2025-03-21] MEDS ORDERED: Furosemide 10 MG/ML 4ML Vial IV ONE ×2 (16:00→18:20)
[2025-03-21] MEDS ORDERED: Ipratropium/Albuterol SulF 2.5-0.5MG/3 ML Amp INH SCH (16:05)
[2025-03-21] MEDS ORDERED: Insulin Human Lispro 100 Units/ML 3ML Syringe SC SCH ×2 (16:30→17:30)
[2025-03-21] MEDS ORDERED: Ondansetron 4 MG TAB PO PRN (17:05)
[2025-03-21 17:48] VITALS: BP 103/66
[2025-03-21] MEDS ORDERED: PERCOCET 10-321 EA13 PO (17:58)
[2025-03-21] MEDS ORDERED: MethylPREDNISolone Sod Succ 125 MG Vial IV SCH (19:00)
--- NOTE | 2025-03-21 19:33 | NUR ---
PT RECEIVED APPROX 6PM FROM ER. H/R REG, NO MURMUR NOTED. NO TELE. LUNGS LIGHT CRACKLES BASES, ON R/A. ORDERS FOR LASIX TO BE GIVEN WHEN IN ER, BUT NOT AVAIL HERE ON THIS FLOOR, CALLED PHA. NEW ORDER PLACED AND MED WAS GIVEN. 2 URINALS GIVEN TO PT. SMALL OPENING IN SKIN ON LEFT GROIN AREA. SCARRING LEFT LEG, CDI, RT BKA, CDI. HAS PROSTETIC AT BEDSIDE. ORDERS FOR INSULIN BUT NO PEN. CALLED PHA. WILL BE SENDING PER PHA. DAUGHTER IN ROOM. MELODY SOTELO NOTIFIED OF PROGRESS MADE. NO OTHER CONCERNS NOTED. BED IN LOW POSITION, CALL LITE IN REACH, CALLS APPROP
[2025-03-21] MEDS ORDERED: Atorvastatin 10 MG Tab PO SCH (20:00)
[2025-03-21] MEDS ORDERED: Pregabalin 75 MG Cap PO SCH (20:00)
[2025-03-22] MEDS ORDERED: Pantoprazole Sodium 40 MG Injection IV SCH (06:00)
[2025-03-22 06:27] LABS: BASOPHILS ABSOLUTE AUTO 0.02 K/mm3 (0.00-0.23); BASOPHILS PERCENT AUTO 0 % (0-2); EOSINOPHILS PERCENT AUTO 0 % (0-6); Hematocrit 51.2 % (37.0-53.0); Hemoglobin 16.8 g/dL (13.5-17.5); IMMATURE GRAN ABSOLUTE AUTO 0.06 K/mm3 (0.00-0.10); IMMATURE GRAN PERCENT AUTO 0 % (0-1); LYMPHOCYTES ABSOLUTE AUTO 0.55 K/mm3 (0.84-5.20); LYMPHOCYTES PERCENT AUTO 4 % (21-46); MONOCYTES ABSOLUTE AUTO 0.27 K/mm3 (0.16-1.47); MONOCYTES PERCENT AUTO 2 % (4-13); Mean Corpuscular HGB Conc 32.8 g/dL (31.5-36.5); Mean Corpuscular Volume 88 fL (80-100); Mean Platelet Volume 10.7 fL (9.1-12.4); NEUTROPHILS PERCENT AUTO 93 % (41-73); Platelet Count 177 K/mm3 (150-400); RDW Coefficient Variation 13.4 % (11.7-14.2); RDW Standard Deviation 43.2 fL (35.1-46.3); Red Blood Cell Count 5.79 M/mm3 (4.30-5.90)
[2025-03-22 06:30] VITALS: BP 166/88
[2025-03-22 06:45] LABS: Albumin/Globulin Ratio 0.7 (0.8-1.8); Bilirubin, Total 0.3 mg/dL (0.1-1.0); Bun/Creatinine Ratio 27.5 (12.0-20.0); Calcium, Blood 9.5 mg/dL (8.5-10.1); Creatinine, Blood 1.71 mg/dL (0.60-1.20); Globulin, Blood 4.2 g/dL (2.2-4.0); Potassium, Blood 4.1 mmol/L (3.5-5.5); Total Protein, Blood 7.2 g/dL (6.4-8.2)
[2025-03-22] MEDS ORDERED: Metoprolol Tartrate 50 MG Tab PO SCH (07:00)
[2025-03-22] MEDS ORDERED: Famotidine 20 MG Tab PO SCH (07:00)
[2025-03-22 07:19] VITALS: BP 132/86
[2025-03-22] MEDS ORDERED: Insulin Human Lispro 100 Units/ML 3ML Syringe SC SCH ×2 (07:30→16:30)
[2025-03-22] MEDS ORDERED: Clopidogrel Bisulfate 75 MG Tab PO SCH (08:00)
[2025-03-22] MEDS ORDERED: Lactobacil 2-S.Thermo-Bifido 1 1 Cap PO SCH (08:00)
[2025-03-22] MEDS ORDERED: Lisinopril 20 MG Tab PO SCH (08:00)
[2025-03-22] MEDS ORDERED: Enoxaparin 40 MG/0.4 ML SYR SC SCH (09:00)
[2025-03-22 10:13] VITALS: BP 120/68
[2025-03-22] MEDS ORDERED: HyDROXyzine HCl 25 MG Tab PO ONE (10:50)
--- NOTE | 2025-03-22 10:55 | NUR ---
1015 PT SHAKING, HIGHLY ANX. CBG CHECK 438. VSS. CALLED DR STALLWORTH. SHE ORDERED ONE TIME 10 UNITS HUMALOG. 1030 PT ADMITS TO USING MARIJUANNA 5-6 HITS, AND DAILY METH ADDICT. STATES FEELING WITHDRAWALS. ORDERS AND COUNSELED PT
[2025-03-22] MEDS ORDERED: CefTRIAXone Sodium 1,000 MG in NS 100 ML IV SCH (12:00)
[2025-03-22] MEDS ORDERED: PredniSONE 20 MG Tab PO ONE (12:30)
--- NOTE | 2025-03-22 13:03 | NUR ---
CALLED [place] [facility] [place] CHANGING MEAL FLAT INSULIN TO 20 UNITS. 15 U S/S TO REMAIN SAME. TOTAL FOR LUNCH 35 U.
[2025-03-22 15:48] VITALS: BP 112/70
[2025-03-22] MEDS ORDERED: LORazepam 0.5 MG Tab PO PRN (15:50)
[2025-03-22] MEDS ORDERED: HyDROXyzine HCl 25 MG Tab PO SCH (16:00)
[2025-03-22 17:27] VITALS: BP 127/69
--- NOTE | 2025-03-22 18:17 | NUR ---
PT HAS BEEN SHAKEY TODAY, HIGHLY ANXIOUS. DISCUSSED WITH DR STALLWORTH. ORDERS MADE. PT STATES HAS BEEN HELPFUL. DID GET SOME REST THIS AFTERNOON 1-6PM. PT STATES TO ME WANTS TO GET OFF THE METH. AGREES WILL BE HARD. EXPRESSES DESIRE TO GET BETTER. PT LADY FRIEND AT BEDSIDE MUCH OF DAY. BLOOD SUGARS IMPROVED THIS SYLVESTER ON HIGHER DOSE OF HUMALOG. PT STATES FEELING BETTER THIS SYLVESTER. NO FURTHER CONCERNS NOTED. BED IN LOW POSITION, CALLLITE IN REACH, CALLS APPROP
[2025-03-22 19:29] VITALS: BP 113/76
--- NOTE | 2025-03-23 00:29 | NUR ---
Tylenol order for headache Pt reports headache and requests ibuprofen. Discussed with Dr. Solis. Given patient's Hx of CKD2 w/ declining GFR 45 (initially 66) + worsening creatinine, and currently receiving necessary nephrotoxic meds (i.e. IV furosemide), it was decided tylenol would be the better alternative to treat headache. Received T.O. w/ repeat-back from Dr. Solis: Give 650mg tylenol PO q6h PRN for mild pain or headache. Order entered.
[2025-03-23] MEDS ORDERED: Acetaminophen 325 MG TABLET PO PRN (00:30)
[2025-03-23 05:02] VITALS: BP 117/74
[2025-03-23 07:01] LABS: BASOPHILS ABSOLUTE AUTO 0.04 K/mm3 (0.00-0.23); BASOPHILS PERCENT AUTO 0 % (0-2); EOSINOPHILS PERCENT AUTO 0 % (0-6); Hematocrit 53.7 % (37.0-53.0); Hemoglobin 17.4 g/dL (13.5-17.5); IMMATURE GRAN ABSOLUTE AUTO 0.14 K/mm3 (0.00-0.10); IMMATURE GRAN PERCENT AUTO 1 % (0-1); LYMPHOCYTES ABSOLUTE AUTO 1.69 K/mm3 (0.84-5.20); LYMPHOCYTES PERCENT AUTO 10 % (21-46); MONOCYTES ABSOLUTE AUTO 1.01 K/mm3 (0.16-1.47); MONOCYTES PERCENT AUTO 6 % (4-13); Mean Corpuscular HGB 29.1 pg (26.0-34.0); Mean Corpuscular HGB Conc 32.4 g/dL (31.5-36.5); Mean Corpuscular Volume 90 fL (80-100); Mean Platelet Volume 10.6 fL (9.1-12.4); NEUTROPHILS ABSOLUTE AUTO 14.32 K/mm3 (1.96-9.15); NEUTROPHILS PERCENT AUTO 83 % (41-73); Platelet Count 202 K/mm3 (150-400); RDW Coefficient Variation 13.4 % (11.7-14.2); RDW Standard Deviation 44.3 fL (35.1-46.3); Red Blood Cell Count 5.97 M/mm3 (4.30-5.90)
[2025-03-23 07:20] LABS: Albumin, Blood 2.9 g/dL (3.4-5.0); Albumin/Globulin Ratio 0.7 (0.8-1.8); Bilirubin, Total 0.3 mg/dL (0.1-1.0); Bun/Creatinine Ratio 37.5 (12.0-20.0); Calcium, Blood 9.7 mg/dL (8.5-10.1); Creatinine, Blood 1.44 mg/dL (0.60-1.20); Globulin, Blood 4.4 g/dL (2.2-4.0); Potassium, Blood 4.5 mmol/L (3.5-5.5); Thyroid Stimulating Hormone 1.71 uIU/mL (0.360-4.800); Total Protein, Blood 7.3 g/dL (6.4-8.2)
--- NOTE | 2025-03-23 07:30 | NUR ---
ASSUMPTION OF CARE: THIS RN ASSUMED CARE OF PATIENT. AWAKE DURING SHIFT CHANGE REPORT. LYING IN BED, RECEIVING BREATHING TREATMENT. GIRLFRIEND AT BEDSIDE, C/O CHEST PAIN AND LEAVING TO GO TO CAR AND THEN ED. BED IN LOWEST POSITION. CALL LIGHT WITHIN REACH. ACUTE NEEDS MET.
[2025-03-23 07:40] VITALS: BP 107/70
--- NOTE | 2025-03-23 10:07 | NUR ---
AMA / SHIFT SUMMARY: PATIENT STANDING @ DOOR OF SCU, DRESSED IN STREET CLOTHES c PROSTHETIC LEG IN PLACE, ATTEMPTING TO LEAVE. STATED HE NEEDED TO SIGN AMA FORM AND ALLOW STAFF TO REMOVE IV FROM RIGHT HAND. BELLA KRISHNAN, REMOVED IV WHILE THIS RN DRAFTED AMA PAPERWORK AND NOTIFIED DR. BECK. PATIENT EDUCATED ON INCREASING WBC AND NEED FOR ABx AND FURTHER Tx FOR CHRONIC CONDITION EXACERBATION. STATED, "I KNOW" AND SCOFFED AT NURSE UPON TURNING TO LEAVE ONCE BADGED OUT OF SCU. CHARGE NURSE, MARIA DEL ROSARIO HOLLIDAY, CAMPAIGN CONSULTANT RICHELLE STEIN AND ACC JOHN KILPATRICK NOTIFIED.
[2025-03-24] MEDS ORDERED: METF500 PO (09:57)
[2025-03-24] MEDS ORDERED: EZETIMIBE10 M1 PO (10:00)
[2025-03-24] MEDS ORDERED: Actos30 MG PO (10:00)
[2025-03-24] MEDS ORDERED: JARDIANCE25 MG PO (10:01)
[2025-03-24] MEDS ORDERED: TRAZ50 PO (10:05)
== END 2025-03-23 10:03 | disposition left against medical advice (07) | DRG 189 ==
LOC: ER 10:52 → MEDS 10:53
PROVIDERS: Emergency Medicine; Registered Nurse; ADMIT Internal Medicine
DX: J96.01 Acute respiratory failure with hypoxia (principal); J44.1 Chronic obstructive pulmonary disease with (acute) exacerbation; I44.7 Left bundle-branch block, unspecified; E11.51 Type 2 diabetes mellitus with diabetic peripheral angiopathy without gangrene; E11.22 Type 2 diabetes mellitus with diabetic chronic kidney disease; I12.9 Hypertensive chronic kidney disease with stage 1 through stage 4 chronic kidney disease, or unspecified chronic kidney disease; N18.2 Chronic kidney disease, stage 2 (mild); E11.42 Type 2 diabetes mellitus with diabetic polyneuropathy; Z53.29 Procedure and treatment not carried out because of patient's decision for other reasons; I25.10 Atherosclerotic heart disease of native coronary artery without angina pectoris; K21.9 Gastro-esophageal reflux disease without esophagitis; D69.6 Thrombocytopenia, unspecified; N28.9 Disorder of kidney and ureter, unspecified; E78.5 Hyperlipidemia, unspecified; Z87.891 Personal history of nicotine dependence; Z89.511 Acquired absence of right leg below knee; Z95.5 Presence of coronary angioplasty implant and graft; Z89.431 Acquired absence of right foot; Z86.19 Personal history of other infectious and parasitic diseases; Z79.4 Long term (current) use of insulin; Z79.02 Long term (current) use of antithrombotics/antiplatelets; Z79.899 Other long term (current) drug therapy; Z88.8 Allergy status to other drugs, medicaments and biological substances
CPT/HCPCS: 36415; 71045; 76705; 80053; 82803; 82947; 83036; 83605; 83880; 84443; 84484; 85025; 87040; 93005; 93010; 93306; 94640; 94644; 94664; 94760; 94762; 96365; 96366; 96372; 96375; 96376; 99285-25; A9270; C8929; G0378; J0696; J1650; J1815; J1938; J2470; J2919; Q9957

== ENCOUNTER 2025-03-23 15:43 | Inpatient (IN) | payer OTHER ==
[~2025-03-23] VITALS: Ht 175.3 cm; Wt 111.9 kg
[~2025-03-23 15:43] MED LIST changes: +PERCOCET 10-321 EA13 PO
[2025-03-23 16:31] LABS: BASOPHILS ABSOLUTE AUTO 0.09 K/mm3 (0.00-0.23); BASOPHILS PERCENT AUTO 1 % (0-2); EOSINOPHILS ABSOLUTE AUTO 0.01 K/mm3 (0.00-0.68); EOSINOPHILS PERCENT AUTO 0 % (0-6); Hematocrit 53.4 % (37.0-53.0); Hemoglobin 17.7 g/dL (13.5-17.5); IMMATURE GRAN ABSOLUTE AUTO 0.06 K/mm3 (0.00-0.10); IMMATURE GRAN PERCENT AUTO 1 % (0-1); LYMPHOCYTES ABSOLUTE AUTO 2.28 K/mm3 (0.84-5.20); LYMPHOCYTES PERCENT AUTO 18 % (21-46); MONOCYTES PERCENT AUTO 6 % (4-13); Mean Corpuscular HGB 28.9 pg (26.0-34.0); Mean Corpuscular HGB Conc 33.1 g/dL (31.5-36.5); Mean Corpuscular Volume 87 fL (80-100); Mean Platelet Volume 10.5 fL (9.1-12.4); NEUTROPHILS ABSOLUTE AUTO 9.74 K/mm3 (1.96-9.15); NEUTROPHILS PERCENT AUTO 75 % (41-73); Platelet Count 198 K/mm3 (150-400); RDW Coefficient Variation 13.6 % (11.7-14.2); RDW Standard Deviation 43.5 fL (35.1-46.3); Red Blood Cell Count 6.12 M/mm3 (4.30-5.90); White Blood Cell Count 12.98 K/mm3 (4.00-11.30)
[2025-03-23 17:04] LABS: Albumin/Globulin Ratio 0.7 (0.8-1.8); Bilirubin, Total 0.3 mg/dL (0.1-1.0); Bun/Creatinine Ratio 40.1 (12.0-20.0); Calcium, Blood 9.7 mg/dL (8.5-10.1); Creatinine, Blood 1.42 mg/dL (0.60-1.20); Globulin, Blood 4.4 g/dL (2.2-4.0); Potassium, Blood 4.5 mmol/L (3.5-5.5); Total Protein, Blood 7.4 g/dL (6.4-8.2)
[2025-03-23] MEDS ORDERED: Ipratropium Bromide INH 0.02% 0.5 mg/2.5ML Vial INH SCH (17:40)
[2025-03-23] MEDS ORDERED: Albuterol 2.5 MG/3 ML VIAL INH SCH (17:40)
[2025-03-23] MEDS ORDERED: Azithromycin 500 MG in NS 250 ML IV ONE (17:40)
[2025-03-23] MEDS ORDERED: MethylPREDNISolone Sod Succ 125 MG Vial IV ONE ×2 (17:40→20:45)
[2025-03-23] MEDS ORDERED: Ipratropium/Albuterol SulF 2.5-0.5MG/3 ML Amp INH SCH (18:20)
[2025-03-23] MEDS ORDERED: Albuterol 2.5 MG/3 ML VIAL INH PRN (18:20)
[2025-03-23] MEDS ORDERED: CefTRIAXone Sodium 1,000 MG in NS 100 ML IV SCH (18:30)
[2025-03-23] MEDS ORDERED: NS 1,000 ML IV SCH (19:15)
[2025-03-23] MEDS ORDERED: HyDROXyzine HCl 25 MG Tab PO PRN (19:25)
[2025-03-23] MEDS ORDERED: CefTRIAXone Sodium 1,000 MG in NS 100 ML IV ONE (20:45)
[2025-03-23] MEDS ORDERED: Ipratropium Bromide INH 0.02% 0.5 mg/2.5ML Vial INH ONE (20:45)
[2025-03-23] MEDS ORDERED: Insulin Human Lispro 100 Units/ML 3ML Syringe SC SCH (21:00)
[2025-03-23] MEDS ORDERED: Lactobacil 2-S.Thermo-Bifido 1 1 Cap PO SCH (21:00)
[2025-03-23 21:42] VITALS: BP 113/76
[2025-03-23 22:14] LABS: Base Excess Venous -0.8 mmol/L; Bicarbonate Venous 24.5 mmol/L (24.0-30.0); PCO2 Venous 32.8 mmHg (38-42); pH Blood Venous 7.46 (7.34-7.37)
[2025-03-24] VITALS (7 sets, daily range): BP systolic 120–146; BP diastolic 72–106
[2025-03-24] MEDS ORDERED: Nicotine 21 MG PATCH TOP SCH (03:30)
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
[2025-03-24 05:49] LABS: BASOPHILS ABSOLUTE AUTO 0.05 K/mm3 (0.00-0.23); BASOPHILS PERCENT AUTO 1 % (0-2); EOSINOPHILS PERCENT AUTO 0 % (0-6); Hematocrit 53.6 % (37.0-53.0); Hemoglobin 17.6 g/dL (13.5-17.5); Mean Corpuscular HGB 28.6 pg (26.0-34.0); Mean Corpuscular HGB Conc 32.8 g/dL (31.5-36.5); Mean Corpuscular Volume 87 fL (80-100); Platelet Count 170 K/mm3 (150-400); RDW Coefficient Variation 13.4 % (11.7-14.2); RDW Standard Deviation 43.1 fL (35.1-46.3); Red Blood Cell Count 6.16 M/mm3 (4.30-5.90); White Blood Cell Count 6.77 K/mm3 (4.00-11.30)
[2025-03-24 05:50] LABS: IMMATURE GRAN PERCENT AUTO 2 % (0-1); LYMPHOCYTES ABSOLUTE AUTO 0.65 K/mm3 (0.84-5.20); LYMPHOCYTES PERCENT AUTO 10 % (21-46); MONOCYTES ABSOLUTE AUTO 0.06 K/mm3 (0.16-1.47); MONOCYTES PERCENT AUTO 1 % (4-13); NEUTROPHILS ABSOLUTE AUTO 5.91 K/mm3 (1.96-9.15); NEUTROPHILS PERCENT AUTO 87 % (41-73)
[2025-03-24 06:10] LABS: BASOPHILS PERCENT MAN 0 % (0-2); EOSINOPHILS PERCENT MAN 0 % (0-6); LYMPHOCYTES PERCENT MAN 6 % (21-46); MONOCYTES ABSOLUTE MAN 0.06 K/mm3 (0.16-1.47); MONOCYTES PERCENT MAN 1 % (4-13); NEUTROPHILS ABSOLUTE MAN 6.29 K/mm3 (1.96-9.15); SEG NEUTROPHILS PERCENT MAN 93 % (41-73); TOTAL CELLS COUNTED 100
[2025-03-24 06:15] LABS: Albumin, Blood 3.1 g/dL (3.4-5.0); Albumin/Globulin Ratio 0.7 (0.8-1.8); Bilirubin, Total 0.3 mg/dL (0.1-1.0); Bun/Creatinine Ratio 36.7 (12.0-20.0); Calcium, Blood 9.2 mg/dL (8.5-10.1); Creatinine, Blood 1.28 mg/dL (0.60-1.20); Globulin, Blood 4.2 g/dL (2.2-4.0); Potassium, Blood 4.9 mmol/L (3.5-5.5); Total Protein, Blood 7.3 g/dL (6.4-8.2)
--- NOTE | 2025-03-24 07:29 | NUR ---
ASSUMPTION OF CARE: THIS RN ASSUMED CARE OF PATIENT FOR . AWAKE DURING SHIFT CHANGE REPORT; POCKET SECRETARY ASSEMBLER OBTAINING VITALS. BREATHING EVEN AND UNLABORED ON 2LPM/NC; RA @ BASELINE. BED IN LOWEST POSITION. CALL LIGHT WITHIN REACH. ACUTE NEEDS MET.
[2025-03-24] MEDS ORDERED: Insulin Glargine-Yfgn 100 Unit/mL 3 ML SYR SC SCH (09:00)
[2025-03-24] MEDS ORDERED: Enoxaparin 40 MG/0.4 ML SYR SC SCH (09:00)
[2025-03-24] MEDS ORDERED: PredniSONE 20 MG Tab PO SCH (09:00)
[2025-03-24] MEDS ORDERED: METF500 PO (09:57)
[2025-03-24] MEDS ORDERED: Actos30 MG PO (10:00)
[2025-03-24] MEDS ORDERED: EZETIMIBE10 M1 PO (10:00)
[2025-03-24] MEDS ORDERED: JARDIANCE25 MG PO (10:01)
[2025-03-24] MEDS ORDERED: TRAZ50 PO (10:05)
[2025-03-24] MEDS ORDERED: LORazepam 0.5 MG Tab PO PRN (10:40)
[2025-03-24] MEDS ORDERED: Azithromycin 500 MG in NS 250 ML IV SCH (18:00)
[2025-03-24] MEDS ORDERED: NS 250 ML IV SCH (18:05)
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
[2025-03-25 03:19] VITALS: BP 120/68
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
[2025-03-25 06:10] LABS: Hematocrit 48.9 % (37.0-53.0); Hemoglobin 15.9 g/dL (13.5-17.5); Mean Corpuscular HGB 28.3 pg (26.0-34.0); Mean Corpuscular HGB Conc 32.5 g/dL (31.5-36.5); Mean Corpuscular Volume 87 fL (80-100); Mean Platelet Volume 10.1 fL (9.1-12.4); Platelet Count 175 K/mm3 (150-400); RDW Coefficient Variation 13.4 % (11.7-14.2); RDW Standard Deviation 43.6 fL (35.1-46.3); Red Blood Cell Count 5.61 M/mm3 (4.30-5.90)
[2025-03-25 06:34] LABS: Bun/Creatinine Ratio 30.1 (12.0-20.0); Calcium, Blood 8.9 mg/dL (8.5-10.1); Creatinine, Blood 1.23 mg/dL (0.60-1.20); Magnesium, Blood 2.3 mg/dL (1.6-2.4); Potassium, Blood 3.7 mmol/L (3.5-5.5)
[2025-03-25 07:21] VITALS: BP 147/84
[2025-03-25] MEDS ORDERED: Acetaminophen 325 MG TABLET PO PRN (07:50)
[2025-03-25] MEDS ORDERED: Insulin Glargine-Yfgn 100 Unit/mL 3 ML SYR SC SCH (09:00)
[2025-03-25] MEDS ORDERED: LORazepam 2 MG/ML 1ML Injection IV ONE (09:55)
[2025-03-25 11:29] VITALS: BP 144/74
[2025-03-25 15:45] VITALS: BP 141/91
--- NOTE | 2025-03-25 17:58 | NUR ---
SUMMARY- PT A/O X4, INDEPENDANT IN THE ROOM. PT STATES HE IS BREATING BETTER AND FEELS HE IS IMPROVING. LUNGS CLEAR WITH EXP WHEEZE, ROUTINE NEBS. PT TOLERATING FOOD AND FLUIDS. VOIDS IN URINAL OR BATHROOM. TYLENOL TODAY FOR HEADACHE HELPFUL. TELE ST, VSS. ATIVAN PRN FOR ANXIETY. PT HAD ONE EPISODE OF OXYGEN TUBING HAVING GOT STUCK IN RAILING AND GOT PRETTY ANXIOUS. RN ENC SLOWED BREATHING THROUGH NOSE OUT MOUTH, THIS AIDED IN RELEIVING ANXIETY AND PT RETURNED TO REG FUNCTION. WILL REPORT TO UNA SOTELO.
[2025-03-25 20:48] VITALS: BP 139/74
[2025-03-26 00:19] VITALS: BP 141/99
[2025-03-26 03:52] VITALS: BP 136/88
--- NOTE | 2025-03-26 04:24 | NUR ---
PATIENT AOX4, INDEPENDENT IN ROOM WITH HX OF R BKA WITH PROSTHETIC. PATIENT HAD NO COMPLAINTS OF ANXIETY THIS EVENING. PATIENT RESTING COMFORTABLY THROUGH NIGHT.
[2025-03-26 06:31] LABS: Hematocrit 49.5 % (37.0-53.0); Hemoglobin 16.7 g/dL (13.5-17.5); Mean Corpuscular HGB 29.1 pg (26.0-34.0); Mean Corpuscular HGB Conc 33.7 g/dL (31.5-36.5); Mean Corpuscular Volume 86 fL (80-100); Platelet Count 178 K/mm3 (150-400); RDW Coefficient Variation 13.3 % (11.7-14.2); RDW Standard Deviation 42.3 fL (35.1-46.3); Red Blood Cell Count 5.73 M/mm3 (4.30-5.90)
[2025-03-26 06:53] LABS: Creatinine, Blood 1.03 mg/dL (0.60-1.20); Magnesium, Blood 2.2 mg/dL (1.6-2.4); Phosphorus, Blood 2.9 mg/dL (2.5-4.9); Potassium, Blood 4.2 mmol/L (3.5-5.5)
[2025-03-26 07:26] VITALS: BP 137/93
[2025-03-26] MEDS ORDERED: MetFORMIN HCl 500 mg PO SCH (08:00)
[2025-03-26] MEDS ORDERED: Empagliflozin 25 MG TAB PO SCH (09:00)
[2025-03-26] MEDS ORDERED: Metoprolol Succinate 25 MG TABCR PO SCH (09:00)
[2025-03-26] MEDS ORDERED: Clopidogrel Bisulfate 75 MG Tab PO SCH (09:00)
[2025-03-26] MEDS ORDERED: Pioglitazone HCl 15 MG Tab PO SCH (09:00)
[2025-03-26] MEDS ORDERED: Atorvastatin 40 MG Tab PO SCH (09:00)
[2025-03-26] MEDS ORDERED: PredniSONE 20 MG Tab PO SCH (09:00)
--- NOTE | 2025-03-26 12:10 | NUR ---
PT WAS DISCHARGED TO CARE OF SCALE MECHANIC, SAMIRA BUTLER. HE WAS WHEELED OUT OF HOSPITAL TO CARE OF SAMIRA AND A PRIVATE VEHICLE. ALL PERSONAL BELONGINGS RETURNED. DISCHARGE EDUCATION PROVIDED BY RN. MEDICATIONS FAXED TO [facility] BY RN. IV REMOVED BY EULOGIO MCQUEEN. TELE REMOVED. PT'S HOME O2 EVAL SHOWED HE DIDN'T REQUIRE OXYGEN AT HOME. PT TOLERATED DISCHARGE PROCEDURE WELL.
== END 2025-03-26 12:27 | disposition home health service (06) | DRG 189 ==
LOC: ER 15:43 → MEDS 18:17
PROVIDERS: Hospitalist; Student in an Organized Health Care Education/Training Program; ADMIT Family Medicine
DX: J96.01 Acute respiratory failure with hypoxia (principal); J44.1 Chronic obstructive pulmonary disease with (acute) exacerbation; M86.9 Osteomyelitis, unspecified; R65.10 Systemic inflammatory response syndrome (SIRS) of non-infectious origin without acute organ dysfunction; N17.9 Acute kidney failure, unspecified; F17.210 Nicotine dependence, cigarettes, uncomplicated; I25.10 Atherosclerotic heart disease of native coronary artery without angina pectoris; E11.51 Type 2 diabetes mellitus with diabetic peripheral angiopathy without gangrene; K21.9 Gastro-esophageal reflux disease without esophagitis; E11.69 Type 2 diabetes mellitus with other specified complication; R14.0 Abdominal distension (gaseous); G47.30 Sleep apnea, unspecified; F15.10 Other stimulant abuse, uncomplicated; F19.10 Other psychoactive substance abuse, uncomplicated; F12.10 Cannabis abuse, uncomplicated; E11.40 Type 2 diabetes mellitus with diabetic neuropathy, unspecified; E11.22 Type 2 diabetes mellitus with diabetic chronic kidney disease; N18.2 Chronic kidney disease, stage 2 (mild); E78.5 Hyperlipidemia, unspecified; I12.9 Hypertensive chronic kidney disease with stage 1 through stage 4 chronic kidney disease, or unspecified chronic kidney disease; Z79.4 Long term (current) use of insulin; Z79.811 Long term (current) use of aromatase inhibitors; Z79.85 Long-term (current) use of injectable non-insulin antidiabetic drugs; Z79.891 Long term (current) use of opiate analgesic; Z79.899 Other long term (current) drug therapy; Z88.8 Allergy status to other drugs, medicaments and biological substances; Z89.441 Acquired absence of right ankle; Z89.511 Acquired absence of right leg below knee; Z95.5 Presence of coronary angioplasty implant and graft; Z87.2 Personal history of diseases of the skin and subcutaneous tissue; Z98.890 Other specified postprocedural states; Z79.02 Long term (current) use of antithrombotics/antiplatelets
CPT/HCPCS: 36415; 71046; 74177; 80048; 80053; 82803; 82947; 83605; 83690; 83735; 84100; 84484; 85025; 85027; 93005; 93010; 94640; 94664; 94760; 94761; 94762; 99285-25; A9270; J0456; J0696; J1650; J1815; J2060; J2919; J7030; J7050; J7512; Q9967

== ENCOUNTER 2025-09-02 00:28 | Observation (INO) | payer OTHER ==
[~2025-09-02] VITALS: Ht 185.4 cm; Wt 108.9 kg
[~2025-09-02 00:28] MED LIST changes: +Actos30 MG PO; +EZETIMIBE10 M1 PO; -HUMALOG KW100 UNIT/1; +INSULIN AS100 UNIT/6 SC; +JARDIANCE25 MG PO; +TRAZ50 PO; -ZESTORETIC 20-121 EA PO; +ZESTORETIC 20-251 EA PO
[2025-09-02] MEDS ORDERED: Albuterol 2.5 MG/3 ML VIAL INH SCH (00:35)
[2025-09-02] MEDS ORDERED: Morphine Sulfate 4 MG/1 ML Injection ONE ×2 (02:47→12:15)
[2025-09-02] MEDS ORDERED: NS 1,000 ML IV ONE (02:48)
[2025-09-02] MEDS ORDERED: Insulin Regular 100 Unit/ML 1ML Dose ONE (02:49)
[2025-09-02] MEDS ORDERED: Albuterol 2.5 MG/3 ML VIAL INH PRN (03:50)
[2025-09-02] MEDS ORDERED: FLU VACC TS2025-26(6MOS UP)/PF 45 MCG/0.5 ML SYRINGE IM SCH (03:50)
[2025-09-02] MEDS ORDERED: Ipratropium/Albuterol SulF 2.5-0.5MG/3 ML Amp INH PRN (03:55)
[2025-09-02 04:02] LABS: Influenza A, PCR NEGATIVE (NEGATIVE); Influenza B, PCR NEGATIVE (NEGATIVE); Resp Syncytial Virus, PCR NEGATIVE (NEGATIVE); SARS-Cov-2 (COVID-19) PCR, MMC NEGATIVE (NEGATIVE)
[2025-09-02 04:03] LABS: Alanine Aminotransfer (ALT/SGP 37.0 U/L (12-78); Albumin, Blood 3.1 g/dL (3.4-5.0); Albumin/Globulin Ratio 0.8 (0.8-1.8); Aspartate Aminotrans (AST/SGOT 17.0 U/L (12-37); Bilirubin, Total 0.3 mg/dL (0.1-1.0); Blood Urea Nitrogen 77.0 mg/dL (8-24); CO2, Blood 24.0 mmol/L (21-32); Calcium, Blood 9.3 mg/dL (8.5-10.1); Creatinine, Blood 1.56 mg/dL (0.60-1.20); Globulin, Blood 4.1 g/dL (2.2-4.0); Glucose, Blood 495.0 mg/dL (70-99); Potassium, Blood 5.0 mmol/L (3.5-5.5); Sodium, Blood 130.0 mmol/L (136-145); Total Protein, Blood 7.2 g/dL (6.4-8.2)
[2025-09-02] MEDS ORDERED: HYDROCODONE-AC1 EA19 PO (04:25)
[2025-09-02] MEDS ORDERED: ROSUVASTATIN CA10 MG PO (04:28)
[2025-09-02 05:47] LABS: Anion Gap 12.0 mmol/L (3-11); Chloride, Blood 99.0 mmol/L (98-108)
[2025-09-02] MEDS ORDERED: NS 250 ML IV PRN (05:55)
[2025-09-02 06:35] VITALS: BP 106/77
--- NOTE | 2025-09-02 06:36 | NUR ---
PATIENT IS A NEW ADMIT FROM THE ED. ALERT ORIENTED AND SELF TRANSFER FROM [facility] TO BED SLIDING OVER WITH RIGHT BKA. W/C BOUND. ON 3L O2 NC AND RA BASELINE. DENIES CHEST PAIN AND N/V. SOB W/EXERTION. HAS A DEXCON DEVICE BUT NOT THE READING PART OF METER. ED RN REPORTS BLOOD GLUCOSE 495 IN ER AND 10 UNITS OF HUMILIN R GIVEN THERE. SKIN GRAFTS TO BLE AND SWOLLEN RIGHT HAND. ORIENTED TO ROOM AND CALL LIGHT SYSTEM. REPORT TO BE GIVEN TO DAY RN. WCTM.
[2025-09-02 07:12] LABS: BASOPHILS ABSOLUTE AUTO 0.07 K/mm3 (0.00-0.23); BASOPHILS PERCENT AUTO 1 % (0-2); EOSINOPHILS ABSOLUTE AUTO 0.17 K/mm3 (0.00-0.68); EOSINOPHILS PERCENT AUTO 2 % (0-6); Hematocrit 50.9 % (37.0-53.0); Hemoglobin 17.0 g/dL (13.5-17.5); IMMATURE GRAN ABSOLUTE AUTO 0.06 K/mm3 (0.00-0.10); IMMATURE GRAN PERCENT AUTO 1 % (0-1); LYMPHOCYTES ABSOLUTE AUTO 1.72 K/mm3 (0.84-5.20); LYMPHOCYTES PERCENT AUTO 21 % (21-46); MONOCYTES ABSOLUTE AUTO 0.79 K/mm3 (0.16-1.47); MONOCYTES PERCENT AUTO 10 % (4-13); Mean Corpuscular HGB Conc 33.4 g/dL (31.5-36.5); Mean Corpuscular Volume 86 fL (80-100); NEUTROPHILS ABSOLUTE AUTO 5.23 K/mm3 (1.96-9.15); NEUTROPHILS PERCENT AUTO 65 % (41-73); NRBC ABSOLUTE 0.00 K/mm3 (0.00-0.02); NRBC Auto 0.0 /100 WBC (0.0-0.2); RDW Coefficient Variation 12.1 % (11.7-14.2); RDW Standard Deviation 38.3 fL (35.1-46.3)
[2025-09-02 07:18] LABS: Platelet Count 180 K/mm3 (150-400)
[2025-09-02] MEDS ORDERED: Insulin Human Lispro 100 Units/ML 3ML Syringe SC SCH ×2 (07:30→08:30)
[2025-09-02] MEDS ORDERED: Insulin Glargine 100 Unit/ML 3 ML SYR SC ONE ×2 (07:55→09:00)
[2025-09-02] MEDS ORDERED: HYDROcodone 5-APAP 325 TAB PO PRN ×2 (08:20→16:30)
[2025-09-02] MEDS ORDERED: Heparin Sodium,Porcine 5,000 UNIT/0.5 ML SDV SC SCH (09:00)
[2025-09-02] MEDS ORDERED: PANTOPRAZOLE SO2010 PO (10:43)
[2025-09-02] MEDS ORDERED: BREO ELLIPTA 11 EAC1 INH (10:47)
[2025-09-02] MEDS ORDERED: INSULIN AS100 UNIT/6 (10:48)
[2025-09-02] MEDS ORDERED: Morphine Sulfate 4 MG/1 ML Injection IV ONE ×3 (12:20→12:25)
--- NOTE | 2025-09-02 12:54 | NUR ---
TRANSFER NOTE: PT WAS TRANSFERRED TO PCU 19 FOLLOWING A RAPID RESPONSE. REPORT GIVEN TO WONG HERRERA RN. SEE CUSTOMER SUPPORT TECHNICIAN INTERVENTION FOR INFORMATION ABOUT THE RAPID RESPONSE. DR. RAMIREZ AT THE BS DURING THE EVENT. RAPID RESPONSE TEAM ALSO AT THE BS. PT'S CAREGIVER UPDATED.
[2025-09-02 13:03] VITALS: BP 101/68
[2025-09-02] MEDS ORDERED: Mag Hydrox/Al Hydrox/Simeth 18 ML,Lidocaine 2% Viscous Soln 9 ML,Atropine/Scopalam/Hyos... PO ONE (13:10)
[2025-09-02] MEDS ORDERED: Mag Hydrox/Al Hydrox/Simeth 72 ML,Lidocaine 2% Viscous Soln 36 ML,Atropine/Scopalam/Hyo... PO PRN (13:10)
[2025-09-02 13:22] LABS: pH Blood Venous 7.43 (7.34-7.37)
[2025-09-02 13:39] VITALS: BP 109/66
[2025-09-02 13:55] LABS: Anion Gap 11.0 mmol/L (3-11); Blood Urea Nitrogen 58.0 mg/dL (8-24); CO2, Blood 22.0 mmol/L (21-32); Calcium, Blood 9.3 mg/dL (8.5-10.1); Chloride, Blood 104.0 mmol/L (98-108); Creatinine, Blood 1.32 mg/dL (0.60-1.20); Glucose, Blood 402.0 mg/dL (70-99); Potassium, Blood 4.6 mmol/L (3.5-5.5); Sodium, Blood 132.0 mmol/L (136-145)
--- NOTE | 2025-09-02 15:16 | NUR ---
TRANSFER TO PCU 19: PT ARRIVED TO PCU 19 AT 1255. PT WENT TO CT PRIOR TO ARRIVAL FOR CT PE STUDY. PT ARRIVES DROUSY AND HAVING A HARD TIME STAYING AWAKE. REPORTS CP WHEN ASKED AND PAIN TO HIS R HAND, IS PALE AND DIAPHORETIC. BUT DENIES ANY OTHER COMPLAINTS. PT SAYING THAT HES READY TO GO HOME. VBG DRAWN AND GI COCKTAIL ORDERED PER PROVIDER ORDERS. PT REPORTS RELIEF IN CP WITH GI COCKTAIL AND DENIES ANY CP ABOUT 15MIN POST CONSUMPTION. PT BEGAN TO PERK UP AND BECAME MORE ALERT AROUND 1330. PT IS NOT SLEEPING WITH EQUAL NONLABORED RESPIRATIONS. NC TITRATED TO 1L NC FROM 4L ON ARRIVAL. NO OTHER SIGNIFICANT EVENTS HAVE HAPPENED SINCE ARRIVAL UNIT. BED IN LOW POSITION AND CALL LIGHT IN REACH.
[2025-09-02 15:32] LABS: U Amphetamine Screen DETECTED; U Barbiturate Screen Not Detected; U Benzodiazapine Screen Not Detected; U Buprenorphine Screen Not Detected; U Cannabinoids Screen Not Detected; U Cocaine Screen Not Detected; U Methadone Screen Not Detected; U Methamphetamine Screen DETECTED; U Opiates Screen DETECTED; U Oxycodone Screen Not Detected; U Phencyclidine Screen Not Detected
[2025-09-02 15:46] VITALS: BP 101/69
--- NOTE | 2025-09-02 16:25 | NUR ---
RESPONED TO RAPID RESPONSE. PATIENTS MENTATION IS ALTERED FROM BASELINE.
--- NOTE | 2025-09-02 17:34 | NUR ---
REPORT RECEIVED AT 1600 FROM WONG SOTELO. PT ALERT ADN ORIENTED X3 SLOW TO RESPOND AT TIMES. VITALS HAS BEEN STABLE. C/O PAIN ON RIGHT HAND DUE TO FX, CALLED DR RAMIREZ TO GET ORDER FOR ULNAR SPLINT. SPLINT PLACED ON R HAND. PAIN MEDS GIVEN WELL FOR RELIEDF. PT ON 1-2L OF O2 IMELDA ASLEEP. NO OTHER ISSUES AT THIS TIME. WILL REPORT TO ONCOMING SHIFT
[2025-09-02 19:30] VITALS: BP 104/69
[2025-09-02] MEDS ORDERED: Formoterol/Mometasone MDI 5/100 mcg 13 GM INH SCH (20:35)
[2025-09-02] MEDS ORDERED: LORazepam 2 MG/ML 1ML Injection IV PRN (20:40)
[2025-09-02] MEDS ORDERED: Insulin Glargine 100 Unit/ML 3 ML SYR SC SCH ×2 (21:00)
[2025-09-02 23:22] VITALS: BP 125/83
[2025-09-03 03:20] VITALS: BP 110/75
[2025-09-03 04:34] LABS: Anion Gap 12.0 mmol/L (3-11); Blood Urea Nitrogen 51.0 mg/dL (8-24); CO2, Blood 22.0 mmol/L (21-32); Calcium, Blood 9.4 mg/dL (8.5-10.1); Chloride, Blood 104.0 mmol/L (98-108); Creatinine, Blood 1.43 mg/dL (0.60-1.20); Glucose, Blood 411.0 mg/dL (70-99); Potassium, Blood 4.9 mmol/L (3.5-5.5); Sodium, Blood 133.0 mmol/L (136-145)
--- NOTE | 2025-09-03 06:19 | NUR ---
NO ACUTE EVENTS OVERNIGHT. PT'S GIRLFRIEND, JUSTIN, CALLED TO CHECK ON PT. THIS NURSE VERIFIED WITH PT IF IT WAS OK TO TALK TO GIRLFRIEND ABOUT HIS STATUS IN THE HOSPITAL. PT OK'D UPDATE. PT'S GIRLFRIEND INFORMED THIS NURSE THAT PT HAS USED METH FOR 40+ YEARS, AND SHE STATED HE MIGHT NEED SOMETHING FOR WITHDRAWLS OR ANXIETY. PT BECAME MORE ANXIOUS NIGHT WENT ON. PROVIDER NOTIFIED AND INFORMED OF INFO THAT WAS GIVEN BY PT'S GIRLFRIEND. PROVIDER ORDERED PRN MEDICATION FOR ANXIETY. MEDS GIVEN ORDERED. PT SLEPT OFF AND ON THROUGHOUT THE NIGHT. PT WAS PLEASANT. USED URINAL APPROPRIATELY. BED ALARM ON. BED LOCKED IN LOWEST POSITION. CALL LIGHT WITHIN REACH.
[2025-09-03 07:30] VITALS: BP 105/72
[2025-09-03] MEDS ORDERED: Calcium Carbon500 MG PO (09:36)
--- NOTE | 2025-09-03 11:46 | NUR ---
PT SUMMARY: PT HAS BEEN COOPERATIVE. TOLERATING WELL WITH DIET AND PO MEDICATIONS. PT WAS BROUGHT TO CTSCAN FOR HIS HANDS BY SENIOR ACCOUNTING ANALYST AND BROUGHT BACK TO ROOM VIA WHEELCHAIR SAFELY. PT WAS SCHEDULED FOR DISCHARGE AND DISCHARGE PAPERWORKS WERE COMPLETED. PT DISCUSSED WITH TAKE HOME MEDICATIONS AND FOLLOW UP APPOINTMENTS. ALSO ENCOURAGED TO READ HIS TAKE HOME PACKETS FOR INFORMATION OF HIS RECENT ADMISSION. INSTRUCTED PT TO USE THE HAND SPLINT DIRECTED BY HIS DOCTORS. PT WAS WHEELED TO ED ENTRANCE AND ASSISTED TO HIS CAREGIVER'S CAR SAFELY.
== END 2025-09-03 11:00 | disposition home or self-care (01) ==
LOC: ER 00:28 → MEDS 00:29 → PCU 13:02
PROVIDERS: Emergency Medicine; Internal Medicine; ADMIT Internal Medicine
DX: J44.1 Chronic obstructive pulmonary disease with (acute) exacerbation (principal); J96.01 Acute respiratory failure with hypoxia; I25.10 Atherosclerotic heart disease of native coronary artery without angina pectoris; I10 Essential (primary) hypertension; K21.9 Gastro-esophageal reflux disease without esophagitis; E11.51 Type 2 diabetes mellitus with diabetic peripheral angiopathy without gangrene; M84.441A Pathological fracture, right hand, initial encounter for fracture; F17.210 Nicotine dependence, cigarettes, uncomplicated; F15.10 Other stimulant abuse, uncomplicated; Z88.8 Allergy status to other drugs, medicaments and biological substances; Z79.4 Long term (current) use of insulin; Z79.84 Long term (current) use of oral hypoglycemic drugs; Z79.02 Long term (current) use of antithrombotics/antiplatelets; Z79.899 Other long term (current) drug therapy; Z95.5 Presence of coronary angioplasty implant and graft; Z89.511 Acquired absence of right leg below knee
CPT/HCPCS: 36415; 71045; 71260; 73130; 73200; 80048; 80053; 82803; 82947; 83605; 83690; 83880; 84484; 85025; 87637; 93005; 93010; 94640; 94664; 94762; 96365; 96372; 96375; 96376; 97161; 99285-25; A9270; G0378; J0456; J1644; J1815; J2270; J7030; J7050; J7512; Q9967

== ENCOUNTER 2025-09-12 16:50 | Inpatient (IN) | payer OTHER ==
[~2025-09-12] VITALS: Ht 180.3 cm; Wt 108.2 kg
[~2025-09-12 16:50] MED LIST changes: +BREO ELLIPTA 11 EAC1 INH; +Calcium Carbon500 MG PO; +HYDROCODONE-AC1 EA19 PO; +INSULIN AS100 UNIT/6; +PANTOPRAZOLE SO2010 PO; +ROSUVASTATIN CA10 MG PO
[2025-09-12] MEDS ORDERED: NS 1,000 ML IV SCH ×3 (17:00→19:35)
[2025-09-12 17:36] LABS: BASOPHILS ABSOLUTE AUTO 0.15 K/mm3 (0.00-0.23); BASOPHILS PERCENT AUTO 1 % (0-2); EOSINOPHILS ABSOLUTE AUTO 0.01 K/mm3 (0.00-0.68); EOSINOPHILS PERCENT AUTO 0 % (0-6); Hematocrit 52.2 % (37.0-53.0); Hemoglobin 17.2 g/dL (13.5-17.5); IMMATURE GRAN ABSOLUTE AUTO 0.15 K/mm3 (0.00-0.10); IMMATURE GRAN PERCENT AUTO 1 % (0-1); LYMPHOCYTES ABSOLUTE AUTO 0.75 K/mm3 (0.84-5.20); LYMPHOCYTES PERCENT AUTO 3 % (21-46); MONOCYTES ABSOLUTE AUTO 1.12 K/mm3 (0.16-1.47); MONOCYTES PERCENT AUTO 4 % (4-13); Mean Corpuscular HGB Conc 33.0 g/dL (31.5-36.5); Mean Corpuscular Volume 88 fL (80-100); NEUTROPHILS ABSOLUTE AUTO 22.99 K/mm3 (1.96-9.15); NEUTROPHILS PERCENT AUTO 91 % (41-73); NRBC ABSOLUTE 0.00 K/mm3 (0.00-0.02); NRBC Auto 0.0 /100 WBC (0.0-0.2); Platelet Count 190 K/mm3 (150-400); RDW Coefficient Variation 12.6 % (11.7-14.2); RDW Standard Deviation 40.9 fL (35.1-46.3)
[2025-09-12] MEDS ORDERED: FentaNYL Citrate 50 MCG/ML 2 ML Injection IV ONE (17:45)
[2025-09-12 18:34] LABS: Alanine Aminotransfer (ALT/SGP 50 U/L (12-78); Albumin, Blood 3.1 g/dL (3.4-5.0); Albumin/Globulin Ratio 0.7 (0.8-1.8); Anion Gap 13 mmol/L (3-11); Aspartate Aminotrans (AST/SGOT 26 U/L (12-37); Bilirubin, Total 0.5 mg/dL (0.1-1.0); Blood Urea Nitrogen 54 mg/dL (8-24); CO2, Blood 24 mmol/L (21-32); Calcium, Blood 9.0 mg/dL (8.5-10.1); Chloride, Blood 96 mmol/L (98-108); Creatinine, Blood 2.49 mg/dL (0.60-1.20); Ethanol (Alcohol), Blood, Med <3 mg/dL; Globulin, Blood 4.2 g/dL (2.2-4.0); Glucose, Blood 417 mg/dL (70-99); Potassium, Blood 5.7 mmol/L (3.5-5.5); Sodium, Blood 127 mmol/L (136-145); Thyroid Stimulating Hormone 2.470 uIU/mL (0.360-4.800); Total Protein, Blood 7.3 g/dL (6.4-8.2)
[2025-09-12] MEDS ORDERED: Albuterol 2.5 MG/3 ML VIAL INH SCH (18:40)
[2025-09-12] MEDS ORDERED: Calcium Gluconate 10% 100 MG/ML INJ IV ONE (18:40)
[2025-09-12] MEDS ORDERED: Insulin Regular 100 Unit/ML 1ML Dose IV ONE (18:40)
[2025-09-12] MEDS ORDERED: CefTRIAXone Sodium 2,000 MG in NS 100 ML IV ONE (18:50)
[2025-09-12 18:54] LABS: Source, Urine Clean Catch
[2025-09-12 18:59] LABS: pH Blood Venous 7.29 (7.34-7.37)
[2025-09-12 18:59] LABS: Bilirubin, Urine Neg (Neg); Color, Urine Yellow (P-Yellow); Glucose Qualitative, Urine 4+ (Neg); Ketones, Urine Neg (Neg); Leukocyte Esterase, Urine 1+ (Neg); Protein, Urine Neg (Neg); Specific Gravity, Urine 1.010 (1.003-1.022); Urobilinogen, Urine NORM (Normal)
[2025-09-12 19:05] LABS: Red Blood Cells, Urine 0-2 /hpf (0-2); Yeast/Fungi Urine Few /hpf
[2025-09-12] MEDS ORDERED: Ondansetron HCl 2 MG / ML 2ML Vial IV PRN (19:35)
[2025-09-12] MEDS ORDERED: FLU VACC TS2025-26(6MOS UP)/PF 45 MCG/0.5 ML SYRINGE IM SCH (19:35)
[2025-09-12 19:36] LABS: Influenza A, PCR NEGATIVE (NEGATIVE); Influenza B, PCR NEGATIVE (NEGATIVE); Resp Syncytial Virus, PCR NEGATIVE (NEGATIVE)
[2025-09-12 20:14] LABS: SARS-Cov-2 (COVID-19) PCR, MMC POSITIVE (NEGATIVE)
[2025-09-12] MEDS ORDERED: Dexamethasone Sodium Phosphate 4 MG/ML 1ML Vial IV SCH (20:53)
[2025-09-12] MEDS ORDERED: Remdesivir (EUA) 200 MG in NS 250 ML IV ONE (21:00)
[2025-09-12 21:21] LABS: Anion Gap 12.0 mmol/L (3-11); Blood Urea Nitrogen 59.0 mg/dL (8-24); CO2, Blood 23.0 mmol/L (21-32); Calcium, Blood 9.2 mg/dL (8.5-10.1); Chloride, Blood 101.0 mmol/L (98-108); Creatinine, Blood 2.08 mg/dL (0.60-1.20); Glucose, Blood 343.0 mg/dL (70-99); Potassium, Blood 4.7 mmol/L (3.5-5.5); Sodium, Blood 131.0 mmol/L (136-145)
[2025-09-12] MEDS ORDERED: Formoterol/Mometasone MDI 5/100 mcg 13 GM INH SCH (22:25)
[2025-09-12] MEDS ORDERED: Albuterol 2.5 MG/3 ML VIAL INH PRN (22:25)
[2025-09-12] MEDS ORDERED: HYDROmorphone HCl/Pf 1MG SYR IV PRN (22:35)
[2025-09-12] MEDS ORDERED: LORazepam 2 MG/ML 1ML Injection IV PRN (22:35)
[2025-09-12 22:41] VITALS: BP 126/79
[2025-09-12 23:12] VITALS: BP 103/61
[2025-09-12 23:15] VITALS: BP 103/61
[2025-09-12] MEDS ORDERED: ALBUTEROL1.25 MG/3 INH (23:21)
[2025-09-12 23:28] VITALS: BP 100/60
[2025-09-12 23:40] VITALS: BP 99/65
[2025-09-12 23:45] VITALS: BP 112/92
[2025-09-13] VITALS (64 sets, daily range): BP systolic 72–172; BP diastolic 40–113
[2025-09-13 01:03] LABS: Anion Gap 11.0 mmol/L (3-11); Blood Urea Nitrogen 59.0 mg/dL (8-24); CO2, Blood 24.0 mmol/L (21-32); Calcium, Blood 9.0 mg/dL (8.5-10.1); Chloride, Blood 103.0 mmol/L (98-108); Creatinine, Blood 2.23 mg/dL (0.60-1.20); Glucose, Blood 334.0 mg/dL (70-99); Potassium, Blood 4.4 mmol/L (3.5-5.5); Sodium, Blood 134.0 mmol/L (136-145)
[2025-09-13] MEDS ORDERED: Insulin Regular 100 UNIT/ML 10ML Vial SC SCH ×3 (01:44→21:00)
[2025-09-13 04:29] LABS: BASOPHILS ABSOLUTE AUTO 0.04 K/mm3 (0.00-0.23); BASOPHILS PERCENT AUTO 0 % (0-2); EOSINOPHILS ABSOLUTE AUTO 0.14 K/mm3 (0.00-0.68); EOSINOPHILS PERCENT AUTO 1 % (0-6); Hematocrit 50.1 % (37.0-53.0); Hemoglobin 16.8 g/dL (13.5-17.5); IMMATURE GRAN ABSOLUTE AUTO 0.11 K/mm3 (0.00-0.10); IMMATURE GRAN PERCENT AUTO 1 % (0-1); LYMPHOCYTES ABSOLUTE AUTO 0.42 K/mm3 (0.84-5.20); LYMPHOCYTES PERCENT AUTO 2 % (21-46); MONOCYTES ABSOLUTE AUTO 0.44 K/mm3 (0.16-1.47); MONOCYTES PERCENT AUTO 2 % (4-13); Mean Corpuscular HGB Conc 33.5 g/dL (31.5-36.5); Mean Corpuscular Volume 87 fL (80-100); NEUTROPHILS ABSOLUTE AUTO 18.69 K/mm3 (1.96-9.15); NEUTROPHILS PERCENT AUTO 94 % (41-73); NRBC ABSOLUTE 0.00 K/mm3 (0.00-0.02); NRBC Auto 0.0 /100 WBC (0.0-0.2); Platelet Count 181 K/mm3 (150-400); RDW Coefficient Variation 13.0 % (11.7-14.2); RDW Standard Deviation 41.2 fL (35.1-46.3)
[2025-09-13 04:55] LABS: Alanine Aminotransfer (ALT/SGP 41.0 U/L (12-78); Albumin, Blood 2.4 g/dL (3.4-5.0); Albumin/Globulin Ratio 0.6 (0.8-1.8); Anion Gap 13.0 mmol/L (3-11); Aspartate Aminotrans (AST/SGOT 19.0 U/L (12-37); Bilirubin, Total 0.3 mg/dL (0.1-1.0); Blood Urea Nitrogen 59.0 mg/dL (8-24); CO2, Blood 22.0 mmol/L (21-32); Calcium, Blood 8.9 mg/dL (8.5-10.1); Chloride, Blood 104.0 mmol/L (98-108); Creatinine, Blood 2.34 mg/dL (0.60-1.20); Globulin, Blood 4.3 g/dL (2.2-4.0); Glucose, Blood 358.0 mg/dL (70-99); Potassium, Blood 4.3 mmol/L (3.5-5.5); Sodium, Blood 135.0 mmol/L (136-145); Total Protein, Blood 6.7 g/dL (6.4-8.2)
[2025-09-13] MEDS ORDERED: Insulin Human Lispro 100 Units/ML 3ML Syringe SC ONE (05:20)
[2025-09-13] MEDS ORDERED: NS 1,000 ML IV SCH (05:20)
--- NOTE | 2025-09-13 06:02 | NUR ---
SHIFT SUMMARY Pt arrived from ED on 4L O2 and writhing around in pain, oriented only to self. Was given 0.5 mg ativan and 2 mg dilaudid for agitation and leg pain. Pt mentation labile, was oriented to month and palce at times. FRANCOIS. COVID+, on 2L NC, LS dim. ST, rates 100-110s. BP soft - notified MD and will give 1 additional liter NS. NPO. glucose elevated despite insulin. giving 15 units lispro this AM and will assess need for insulin gtt after that. incontinent of urine but saturated briefs several times. many skin issues - see physical chart. bedrest until mentation improves.
[2025-09-13] MEDS ORDERED: Insulin Human Lispro 100 Units/ML 3ML Syringe SC SCH (07:30)
[2025-09-13] MEDS ORDERED: Cosyntropin 0.25 MG / ML 1ML Vial IV STA (08:01)
[2025-09-13] MEDS ORDERED: Dexamethasone Sodium Phosphate 4 MG/ML 1ML Vial IV ONE (08:05)
[2025-09-13] MEDS ORDERED: Insulin Human Regular 100 UNIT in NS 100 ML IV SCH (08:10)
--- NOTE | 2025-09-13 08:18 | NUR ---
PHARMACIST IN CHARGE OWNER called. patient unresponsive, after trendelenberg and IV fluids pt awakes and request his clinical care leader be called. Mariam notified of patient transfer to ICU 7 ( mariam [phone])
--- NOTE | 2025-09-13 08:20 | NUR ---
ASSUMPTION OF CARE / CERTIFIED FLEX ENDOSCOPE REPROCESSOR ABOUT 709, BEDSIDE SHIFT REPORT RECIEVED FROM GILDA SOTELO. PT WAS LETHARGIC BUT AROUSABLE TO PHYSICAL STIMULI. NYSTAGMUS NOTED UPON OPENING OF EYES. SINUS TACH 100s ON TELE, MONITOR SHOWED LAST BP AT 0645 WAS LABILE- 92/56 MAP 66. FLUIDS INFUSING AT 200 mL/hr IN SONIA 22g PIV. PT WAS ON 2L O2 NC, SATTING 90-93%. REPORTED THAT CBG NEEDED TO BE CHECKED AT 0730 DUE TO PERSISTENT HYPERGLYCEMIA DESPITE NPO AND INSULIN ADMINISTRATION. PT WAS ABLE TO VERBALIZE HEADACHE. 07, DRIER TENDER NAPHTHALENE CALLED THIS RN TO REPORT BP OF 76/46 MAP 57. 0732, VITAL SIGNS AND CBG WERE BEING CHECKED DURING FOCUSED ASSESSMENT. BLOOD PRESSURE RE-CHECKED, 80/50 MAP 60, CBG WAS 354. PT WAS UNABLE TO STATE LAST NAME OR AT THIS TIME. SHOOK HIS HEAD NO WHEN ASKED IF HE COULD STATE THEM. PT PLACED SUPINE TO SUPPORT BP. THIS RN AND FERNANDO RN LEFT ROOM TO CALL DR. HERNÁNDEZ AT THIS TIME. 075, THIS RN AND FERNANDO SOTELO CALLED DR. HERNÁNDEZ WITH CONERNS OF HYPERGLYCEMIA, HYPOTENSION, AND ALTERED MENTATION. WHILE ON THE PHONE, DR. DOVE STATED THAT HE WOULD LOOK UP THE PATIENT AND COME TO BEDSIDE. FERNANDO SOTELO REQUESTED FLUIDS TO BE INCREASED FROM 200 mL/hr TO A BOLUS UNTIL HE COMES TO BEDSIDE. DR. HERNÁNDEZ OKAYED THE CHANGE TO BOLUS. AT THIS TIME, PCU CHARGING PLUG PLACER KRISSY CALLED ICU CHARGING PLUG PLACER ROBY. ICU CHARGE WAS WITH ANOTHER PT AT THIS TIME. ABOUT 075, THIS RN AND FERNANDO SOTELO RETURNED TO PT'S BEDISDE TO INCREASE FLUID RATE AND COMPLETE ASSESSMENT. DURING THIS TIME, FERNANDO SOTELO CALLED TONE DESHPANDE RN INTO ROOM FOR IV ACCESS ASSISTANCE. 075 BP READ 72/40 MAP 47. PT NODDED IN AGREEMENT TO DIZZINESS AT THIS TIME AND WAS BEGINNING TO BECOME UNRESPONSIVE. PT PLACED IN REVERSE TRENDELENBERG. REGINALD RT WAS ALREADY OUTSIDE OF ROOM AND FERNANDO SOTELO ASKED KENROY SOTELO TO CALL A RAPID RESPONSE. 0800, RAPID REPSONSE CALLED. CODE CART PULLED TO OUTSIDE OF ROOM, CHARGING PLUG PLACER ATTEMPTED ADDITIONAL IV ACCESS, CBG OBTAINED, EKG COMPLETED, ICU CHARGE PAMELA AND ELECTRICAL CONTINUITY INSPECTOR PK CAME TO BEDSIDE AND WERE UPDATED ON PT. DUE TO PT'S MENTATION, PAMELA ASKED FOR PT TO BE PUT ON PADS. REGINALD PARKER PUT PT ON 10L NON-REBREATHER. LABS TAKEN. PT DIFFICULT TO AROUSE WITH PHYSICAL STIMULI AT THIS TIME. AT ABOUT 0805, DR. HERNÁNDEZ ARRIVED AT BEDSIDE. UPDATED ON PT AND CARE. AFTER REVIEWING PT'S CHART AND STABILIZING PT, LEVOPHED AND INSULIN GTT WERE ORDERED. PT BEGAN TO BE MORE AWAKE AND WAS ABLE TO ASK STAFF TO CALL HIS CAREGIVER, PROVIDING A PHONE NUMBER. NURSING LITHOGRAPHIC PRINTING MACHINIST JENNIFER MADE PHONE CALLS. PT TRANSFERRED TO ICU07 AT 0815. BEDSIDE REPORT GIVEN TO MARIO SOTELO AND ABIGAIL RN. NO FURTHER NOTES FROM THIS RN.
[2025-09-13] MEDS ORDERED: Vancomycin (Pharmacy Consult) IV SCH (08:45)
[2025-09-13] MEDS ORDERED: NS 1,000 ML IV ONE (08:45)
[2025-09-13] MEDS ORDERED: Vancomycin HCL 2,500 MG in NS 500 ML IV SCH (10:00)
--- NOTE | 2025-09-13 10:42 | NUR ---
TRANSFER TO ICU PT TRANSFERED TO ICU 7 AT 0815 DUE TO HYPOTENSION AND INCREASE IN O2 DEMAND. PIV INFULTRATED AND PICC LINE PLACED; LABS SENT; BOLUS GIVEN; INSULIN GTT STARTED; LEVOPHED ON SB. PT IS A/O X3-4, UNSURE OF LOCATION AT TIMES, THINKING HE IS AT "[facility]". PT ARRIVED ON 15L NRB AND SWICHED TO OXYMASK; SLOWLY TITRATED DOWN AND IS NOW ON 3L NC FOR SPO2 >94%. AFEBRILE. HR 110-120'S. SBP 90-100 WITH MAP IN LOW 70'S. SCATTERED BRUISING NOTED. SEE SHIFT ASSESSMENT FOR FULL ASSESSMENT.
[2025-09-13] MEDS ORDERED: CefTRIAXone Sodium 2,000 MG in NS 100 ML IV SCH (14:00)
--- NOTE | 2025-09-13 18:27 | NUR ---
END OF SHIFT SUMMARY PT IMPROVING SINCE TRANSFER THIS AM. HE CONT TO BE ON THE INSULIN GTT T/O THE DAY AND SWITCHED TO SUBQ AROUND [address] CASTANEDA ORDERS. PT IS A/O X4; HE CAN BE DISORIENTED WHILE WAKING UP BUT CAN BE REDIRECTED; ABLE TO MAKE HIS NEEDS KNOWN. SPO2 >95% ON 3L NC. AFEBRILE. HR 100-110. SBP 90-120'S, MAP >65; LEVOPHED NOT STARTED. APPITITE IMPROVED T/O THE DAY AND HE ATE ALL OF HIS DINNER; NO N/V. USING URINAL WITH MINIMAL ASSISTANCE. PRN DILAUDID GIVEN TWICE FOR RT FLANK PAIN; PT STATES THAT HE WAS "MOVING HIS MATTRESS" AT HOME AND THAT THIS PAIN STARTED AFTER THAT EVENT. PICC TO [employer] PATENT AND SALINE LOCKED. WILL REPORT TO PM RN WHEN AVAILABLE.
[2025-09-13] MEDS ORDERED: Insulin Glargine 100 Unit/ML 3 ML SYR SC SCH (21:00)
[2025-09-13] MEDS ORDERED: Remdesivir (EUA) 100 MG in NS 250 ML IV SCH (21:00)
[2025-09-14] VITALS (13 sets, daily range): BP systolic 109–174; BP diastolic 77–105
[2025-09-14] MEDS ORDERED: HYDROcodone 5-APAP 325 TAB PO PRN (03:05)
[2025-09-14 03:21] LABS: BASOPHILS ABSOLUTE AUTO 0.03 K/mm3 (0.00-0.23); BASOPHILS PERCENT AUTO 0 % (0-2); EOSINOPHILS ABSOLUTE AUTO 0.00 K/mm3 (0.00-0.68); EOSINOPHILS PERCENT AUTO 0 % (0-6); Hematocrit 46.7 % (37.0-53.0); Hemoglobin 15.7 g/dL (13.5-17.5); IMMATURE GRAN ABSOLUTE AUTO 0.12 K/mm3 (0.00-0.10); IMMATURE GRAN PERCENT AUTO 1 % (0-1); LYMPHOCYTES ABSOLUTE AUTO 0.95 K/mm3 (0.84-5.20); LYMPHOCYTES PERCENT AUTO 5 % (21-46); MONOCYTES ABSOLUTE AUTO 1.02 K/mm3 (0.16-1.47); MONOCYTES PERCENT AUTO 5 % (4-13); Mean Corpuscular HGB Conc 33.6 g/dL (31.5-36.5); Mean Corpuscular Volume 87 fL (80-100); NEUTROPHILS ABSOLUTE AUTO 17.41 K/mm3 (1.96-9.15); NEUTROPHILS PERCENT AUTO 89 % (41-73); NRBC ABSOLUTE 0.00 K/mm3 (0.00-0.02); NRBC Auto 0.0 /100 WBC (0.0-0.2); Platelet Count 190 K/mm3 (150-400); RDW Coefficient Variation 13.2 % (11.7-14.2); RDW Standard Deviation 42.2 fL (35.1-46.3)
[2025-09-14 03:22] LABS: pH Blood Venous 7.39 (7.34-7.37)
[2025-09-14 03:37] LABS: Anion Gap 13.0 mmol/L (3-11); Blood Urea Nitrogen 46.0 mg/dL (8-24); CO2, Blood 23.0 mmol/L (21-32); Calcium, Blood 8.9 mg/dL (8.5-10.1); Chloride, Blood 104.0 mmol/L (98-108); Creatinine, Blood 1.49 mg/dL (0.60-1.20); Glucose, Blood 245.0 mg/dL (70-99); Potassium, Blood 4.1 mmol/L (3.5-5.5); Sodium, Blood 136.0 mmol/L (136-145)
--- NOTE | 2025-09-14 04:30 | NUR ---
SHIFT SUMMARY Pt more oriented and wakeful this shift. Continued to have pain in right lower back that radiated towards left lower back, controlled well with medication. 3L NC, LS CTA. ST, rates 90-110s. BP WDL. Abd midly distended, hyperactive bowel sounds. blood sugars remain high but better controlled. large UOP via urinal. scattered bruising t/out. left leg reddness increased in intensity and size - MD notified, area marked and dated, new pictures placed in chart. can hopefully mobilize now that more oriented and lower O2 needs.
--- NOTE | 2025-09-14 17:31 | NUR ---
SHIFT SUMMARY PT REMAINS ALERT, ORIENTED AND COOPERATIVE W/ CARE. PT USING CALL LIGHT APPROPRIATELY. EATS ALL MEALS W/ GOOD APPETITE. PT SATS>93% ON ROOM AIR WHILE AWAKE, DECREASE DURING SLEEP AND REQUIRES 2L VIA NC FOR APNEIC EPISODES. SINUS TACH RATE OF 100S OBSERVED VIA CONTINUOUS MONITOR. BP STABLE W/ MAP>65. SYSTOLILC BP 130S. PT AFEBRILE. USING URINAL INDEPENDENTLY W/ GOOD OUTPUT. NO BM DURING SHIFT. PT RECIEVED ECHO STUDY DURING SHIFT, RESULTS PENDING. PT REQUESTED ONE DOSE OF PRN PO PAIN MEDICATION W/ GOOD EFFECT DURING SHIFT- FOR LOW BACK PAIN. CALL LIGHT W/ IN REACH. PLAN OF CARE ONGOING.
[2025-09-14] MEDS ORDERED: Insulin Glargine 100 Unit/ML 3 ML SYR SC SCH (21:00)
[2025-09-15] VITALS: BP 150/53
[2025-09-15 02:00] VITALS: BP 170/117
[2025-09-15 04:00] VITALS: BP 136/85
[2025-09-15 06:00] VITALS: BP 169/83
[2025-09-15] MEDS ORDERED: Amiodarone HCl 150 MG in NS 100 ML IV ONE (06:10)
[2025-09-15] MEDS ORDERED: Amiodarone HCl 450 MG in NS 250 ML IV SCH (06:10)
[2025-09-15 06:38] LABS: Hematocrit 49.2 % (37.0-53.0); Hemoglobin 16.4 g/dL (13.5-17.5); Mean Corpuscular HGB Conc 33.3 g/dL (31.5-36.5); Mean Corpuscular Volume 86 fL (80-100); NRBC ABSOLUTE 0.00 K/mm3 (0.00-0.02); NRBC Auto 0.0 /100 WBC (0.0-0.2); Platelet Count 175 K/mm3 (150-400); RDW Coefficient Variation 13.0 % (11.7-14.2); RDW Standard Deviation 40.7 fL (35.1-46.3)
[2025-09-15 07:15] LABS: Anion Gap 10.0 mmol/L (3-11); Blood Urea Nitrogen 47.0 mg/dL (8-24); CO2, Blood 24.0 mmol/L (21-32); Calcium, Blood 9.5 mg/dL (8.5-10.1); Chloride, Blood 105.0 mmol/L (98-108); Creatinine, Blood 1.18 mg/dL (0.60-1.20); Glucose, Blood 274.0 mg/dL (70-99); Potassium, Blood 4.5 mmol/L (3.5-5.5); Sodium, Blood 134.0 mmol/L (136-145)
[2025-09-15 08:00] VITALS: BP 135/90
[2025-09-15] MEDS ORDERED: CIPR500 PO (11:11)
[2025-09-15] MEDS ORDERED: VISBIOME 112.51 EACH PO (11:17)
[2025-09-15 12:00] VITALS: BP 138/94
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
== END 2025-09-15 12:17 | disposition home or self-care (01) | DRG 871 ==
LOC: ER 16:50 → PCU 19:24 → ICUE 19:24 → PCU 22:01 → ICUE 09-13 08:15
PROVIDERS: Emergency Medicine; Internal Medicine; ADMIT Internal Medicine
PROC: 3E03329 Introduction of Other Anti-infective into Peripheral Vein, Percutaneous Approach (ICD-10-PCS; principal; 2025-09-12)
PROC: XW033E5 Introduction of Remdesivir Anti-infective into Peripheral Vein, Percutaneous Approach, New Technology Group 5 (ICD-10-PCS; 2025-09-12)
PROC: 3E0333Z Introduction of Anti-inflammatory into Peripheral Vein, Percutaneous Approach (ICD-10-PCS; 2025-09-12)
PROC: 02HV33Z Insertion of Infusion Device into Superior Vena Cava, Percutaneous Approach (ICD-10-PCS; 2025-09-13)
PROC: 3E033XZ Introduction of Vasopressor into Peripheral Vein, Percutaneous Approach (ICD-10-PCS; 2025-09-13)
DX: A41.9 Sepsis, unspecified organism (principal); G92.8 Other toxic encephalopathy; U07.1 COVID-19; N17.9 Acute kidney failure, unspecified; N39.0 Urinary tract infection, site not specified; B02.8 Zoster with other complications; E87.1 Hypo-osmolality and hyponatremia; E87.4 Mixed disorder of acid-base balance; R57.9 Shock, unspecified; R65.20 Severe sepsis without septic shock; E87.5 Hyperkalemia; I25.10 Atherosclerotic heart disease of native coronary artery without angina pectoris; J44.9 Chronic obstructive pulmonary disease, unspecified; F15.90 Other stimulant use, unspecified, uncomplicated; E11.51 Type 2 diabetes mellitus with diabetic peripheral angiopathy without gangrene; K21.9 Gastro-esophageal reflux disease without esophagitis; E11.65 Type 2 diabetes mellitus with hyperglycemia; E78.00 Pure hypercholesterolemia, unspecified; F17.210 Nicotine dependence, cigarettes, uncomplicated; E86.0 Dehydration; R09.02 Hypoxemia; N18.30 Chronic kidney disease, stage 3 unspecified; E11.22 Type 2 diabetes mellitus with diabetic chronic kidney disease; I12.9 Hypertensive chronic kidney disease with stage 1 through stage 4 chronic kidney disease, or unspecified chronic kidney disease; Z79.4 Long term (current) use of insulin; Z88.8 Allergy status to other drugs, medicaments and biological substances; Z79.02 Long term (current) use of antithrombotics/antiplatelets; Z79.84 Long term (current) use of oral hypoglycemic drugs; Z89.421 Acquired absence of other right toe(s); Z86.19 Personal history of other infectious and parasitic diseases
CPT/HCPCS: 36415; 36569; 70450; 71045; 74177; 80048; 80053; 80320; 81001; 82010; 82803; 82947; 83605; 83880; 84439; 84443; 84484; 85025; 85027; 87637; 93005; 93010; 93306; 94640; 94664; 94762; 96361; 96365-59; 96375; 99285-25; A9270; C1751; J0248; J0456; J0696; J0834; J1100; J1171; J1815; J1938; J2060; J3010; J3373; J7030; J7040; J7050; Q9967

== ENCOUNTER → 2025-09-28 | Outpatient (CLI) | payer OTHER ==
[~2025-09-28] MED LIST changes: +ALBUTEROL1.25 MG/3 INH; +Cleocin HCl150 MG PO; +VISBIOME 112.51 EACH PO
[2025-09-28 15:10] LABS: BASOPHILS ABSOLUTE AUTO 0.10 K/mm3 (0.00-0.23); BASOPHILS PERCENT AUTO 1 % (0-2); EOSINOPHILS ABSOLUTE AUTO 0.14 K/mm3 (0.00-0.68); EOSINOPHILS PERCENT AUTO 2 % (0-6); Hematocrit 47.3 % (37.0-53.0); Hemoglobin 15.8 g/dL (13.5-17.5); IMMATURE GRAN ABSOLUTE AUTO 0.05 K/mm3 (0.00-0.10); IMMATURE GRAN PERCENT AUTO 1 % (0-1); LYMPHOCYTES ABSOLUTE AUTO 1.88 K/mm3 (0.84-5.20); LYMPHOCYTES PERCENT AUTO 27 % (21-46); MONOCYTES ABSOLUTE AUTO 0.50 K/mm3 (0.16-1.47); MONOCYTES PERCENT AUTO 7 % (4-13); Mean Corpuscular HGB Conc 33.4 g/dL (31.5-36.5); Mean Corpuscular Volume 88 fL (80-100); NEUTROPHILS ABSOLUTE AUTO 4.42 K/mm3 (1.96-9.15); NEUTROPHILS PERCENT AUTO 62 % (41-73); NRBC ABSOLUTE 0.00 K/mm3 (0.00-0.02); NRBC Auto 0.0 /100 WBC (0.0-0.2); Platelet Count 236 K/mm3 (150-400); RDW Coefficient Variation 13.1 % (11.7-14.2); RDW Standard Deviation 41.6 fL (35.1-46.3)
[2025-09-28 15:21] LABS: Alanine Aminotransfer (ALT/SGP 47.0 U/L (12-78); Albumin, Blood 2.6 g/dL (3.4-5.0); Albumin/Globulin Ratio 0.5 (0.8-1.8); Anion Gap 15.0 mmol/L (3-11); Aspartate Aminotrans (AST/SGOT 22.0 U/L (12-37); Bilirubin, Total 0.3 mg/dL (0.1-1.0); Blood Urea Nitrogen 59.0 mg/dL (8-24); CO2, Blood 25.0 mmol/L (21-32); Calcium, Blood 8.9 mg/dL (8.5-10.1); Chloride, Blood 102.0 mmol/L (98-108); Creatinine, Blood 1.56 mg/dL (0.60-1.20); Globulin, Blood 4.9 g/dL (2.2-4.0); Glucose, Blood 343.0 mg/dL (70-99); Potassium, Blood 4.7 mmol/L (3.5-5.5); Sodium, Blood 137.0 mmol/L (136-145); Total Protein, Blood 7.5 g/dL (6.4-8.2)
== END ==
LOC: LAB 15:06 → LAB SHORT 15:06
PROVIDERS: Physician Assistant
DX: L03.116 Cellulitis of left lower limb (principal)
CPT/HCPCS: 80053; 85025